=== PATIENT | female | born 1990 | race Caucasian/White ===

== ENCOUNTER 2019-07-09 13:18 | Emergency (ER) | payer OTHER, SELFPAY ==
[2019-07-09 13:46] VITALS: BP 129/76; PULSE 74; RESP 16; TEMP 37.3; O2SAT 99
--- NOTE | 2019-07-09 14:25 | ED.URI ---
HPI - URI/Sore Throat General Chief Complaint: Upper Respiratory Infection Stated Complaint: Cold/Flu like sx Time Seen by Provider: 07/09/19 14:22 Source: patient and RN notes reviewed Mode of arrival: ambulatory Limitations: no limitations History of Present Illness HPI Narrative: 28-year-old female presents with concern for a low-grade fever, nasal congestion, rhinorrhea, occasional cough, fatigue, body aches. Reports symptoms worsen last night. Reports symptoms started 1 week ago. Has not taken any medications for her symptoms. She is worried about coronavirus. MD elicited complaint: nasal congestion Related Data Allergies Allergy/AdvReac Type Severity Reaction Status Date / Time No Known Allergies Allergy Verified 07/09/19 13:54 Review of Systems Review of Systems: Narrative: CONSTITUTIONAL: Reports malaise, low-grade fever. EYES: Denies visual changes, redness, or discharge. ENT: Reports rhinorrhea, congestion. Denies sinus pain, otalgia and sore throat. CARDIOVASCULAR: Denies chest pain, palpitations, or edema. RESPIRATORY: Reports occasional cough. Denies dyspnea. GASTROINTESTINAL: Denies abdominal pain, nausea, vomiting, diarrhea SKIN: Denies rash or itching. MUSCULOSKELETAL: Reports myalgia. NEUROLOGIC: Denies headache. All systems reviewed & are unremarkable except as noted in HPI and below PMFSH Comments At time of signature, agree with nursing past medical, surgical, social and family history. There is no relevant family history pertinent to the presenting complaint Exam Narrative: Exam Narrative: GENERAL: Well-appearing, well-nourished, and in no acute distress. HEAD: Normocephalic EYES: PERRLA, conjunctivae clear ENT: Nares clear, turbinates erythematous, clear discharge. Mucous membranes moist. TM pearly [place] with dull light reflex bilaterally; no tragal tenderness. Oropharynx not erythematous without lesions. Tonsils not enlarged and without exudate, no drooling, no hoarseness, no trismus, uvula midline. NECK: Supple. No lymphadenopathy CHEST: Clear to auscultation, breath sounds equal. No wheezing, rhonchi, rales, or stridor. No respiratory distress, speaks in full sentences. HEART: Regular rate and rhythm. No murmur heard. SKIN: Warm, dry, no rash. NEURO: Alert and oriented x3. PSYCH: Normal mood and affect Course Course Emergency Course: Patient is aware of diagnosis, understands and agrees to treatment plan. Anticipatory guidance given. Patient agrees to follow-up as directed and is aware of reasons to seek care at the emergency department. Portions of this record may have been created with voice recognition software Vital Signs Vital signs: Vital Signs Temperature 99.1 F 07/09/19 13:46 Pulse Rate 74 07/09/19 13:46 Respiratory Rate 16 07/09/19 13:46 Blood Pressure 129/76 07/09/19 13:46 Pulse Oximetry 99 07/09/19 13:46 Temperature 99.1 F 07/09/19 13:46 Pulse Rate 74 07/09/19 13:46 Respiratory Rate 16 07/09/19 13:46 Blood Pressure 129/76 07/09/19 13:46 Pulse Oximetry 99 07/09/19 13:46 Reviewed. Patient has been instructed to follow up with her primary care provider within the next week regarding her elevated blood pressure today. MDM - URI/Sore Throat MDM Narrative Medical decision making narrative: Differential diagnosis considered: Strep pharyngitis, allergic rhinitis, upper respiratory tract infection, sinusitis, rhinosinusitis, nasopharyngitis. viral pharyngitis, otitis media, otitis externa, pneumonia, bronchitis, viral cough syndrome, viral syndrome, and influenza. Exam findings show no acute concerns or changes; patient is non-toxic appearing and is in no distress. Patient is appropriate for outpatient treatment and follow-up. Critical Care Time Critical Care Time Critical Care Time: No Discharge Plan Discharge Clinical Impression: Viral infection Patient Disposition: Home, Self-Care Condition: Stable Instructions: Viral Syndrome (ED)
== END 2019-07-09 14:40 | disposition home or self-care (01) ==
PROVIDERS: Emergency Provider Nurse Practitioner
DX: B34.9 Viral infection, unspecified (principal)
CPT/HCPCS: 99203; G0463

== ENCOUNTER 2019-12-09 23:13 | Emergency (ER) | payer OTHER, SELFPAY ==
[2019-12-09 23:26] VITALS: BP 146/73; PULSE 86; RESP 16; TEMP 37.1; O2SAT 100
[2019-12-09 23:42] LABS: Basophils Percent Auto 0.3 % (0.2-1.2); Eosinophils Absolute Auto 0.1 K/mm3 (0-0.3); Eosinophils Percent Auto 1.1 % (0-4.4); Hematocrit 42.2 % (37.0-47.0); Immature Granulocyte Absolute 0.02 K/mm3 (0.00-0.031); Immature Granulocyte Percent A 0.2 % (0-0.5); Lymphocytes Absolute Auto 2.44 K/mm3 (0.9-3.2); Lymphocytes Percent Auto 23.1 % (18.3-44.2); Mean Corpuscular HGB Conc 33.2 g/dl (32-36); Mean Corpuscular Hemoglobin 29.1 pg (26-34); Mean Corpuscular Volume 87.7 fl (80-100); Mean Platelet Volume 9.6 fl (7.4-10.4); Monocytes Absolute Auto 0.9 K/mm3 (0.1-0.6); Monocytes Percent Auto 8.4 % (2.6-8.5); Neutrophils Absolute Auto 7.1 K/mm3 (1.3-6.7); Neutrophils Percent Auto 66.9 % (45.5-73.1); Platelet Count Result 306 k/mm3 (150-375); Red Blood Count 4.81 M/mm3 (4.2-5.4); Red Cell Distribution Width 12.4 % (11.5-14.5); White Blood Count 10.6 K/mm3 (4.5-10.0)
--- NOTE | 2019-12-09 23:42 | ED.GENADULT ---
HPI - General Adult General Chief complaint: Nausea/Vomiting/Diarrhea Stated complaint: possible GI bleed Time Seen by Provider: 12/09/19 23:20 Source: RN notes reviewed History of Present Illness HPI narrative: Patient presents emergency department from home for possible blood in the stool. Patient states that this evening she had 2 episodes of diarrhea. She states after the second episode of diarrhea with wiping she noted bright red blood. She denies having any blood in the stool that she could see. She states she did have some abdominal cramping following this but denies any current abdominal pain and noted some mild chills following episode of diarrhea but denies any at this time. She denies any fevers chest pain shortness of breath or any other symptoms at this time. Denies being on any blood thinners Related Data Home Medications Medication Instructions Recorded Confirmed No Home Medications 12/09/19 12/09/19 Allergies Allergy/AdvReac Type Severity Reaction Status Date / Time No Known Allergies Allergy Verified 12/09/19 23:29 Review of Systems Review of Systems: Narrative: Gen.: Denies fevers reports chills ENT: Denies congestion Respiratory: Denies shortness of breath or cough CV: Denies chest pain or palpitations GI: See HPI denies burning, urgency, frequency or hematuria Musculoskeletal: Denies back pain or muscle pain Neuro: Denies numbness, tingling, weakness or focal weakness Skin: Denies rash Except as documented, all other systems reviewed and negative PMFSH Past Medical History Medical History (Updated 12/10/19 @ 00:48 by Ke Sue DO) Patient denies significant medical history Social History Social History (Updated 12/09/19 @ 23:43 by Ke Sue DO) Smoking status: Never smoker Gender identity (if verbalized by the patient): Female Exam Narrative: Exam Narrative: APPEARANCE: No acute distress, nontoxic, resting in bed EYES: EOMI HEENT: Normocephalic, atraumatic, OMM RESPIRATORY: No respiratory distress Clear to auscultation bilaterally with no rhonchi wheezing or rales. CARDIOVASCULAR: Regular rate and rhythm without murmurs rubs or gallops. ABDOMINAL: Soft, nontender, nondistended, no rebound or guarding Rectal: No hemorrhoids or fissures, no active bleeding, small amount of soft brown stool is Hemoccult negative MUSCULOSKELETAl: Moves all extremities. No clubbing, cyanosis or edema. NEURO: Awake and alert. Following commands, speech normal, no focal deficits SKIN:: Warm, dry. No rashes lesions or abrasions PSYCHIATRIC: Normal affect/mood, Course Course Emergency Course: Discussed with patient results of workup and diagnosis. Discussed need for follow-up with primary care, proper use of medication, and reasons to return to the emergency department. Patient understands and agrees to current treatment plan Vital Signs Vital signs: Vital Signs Temperature 98.8 F 12/09/19 23:26 Pulse Rate 86 12/09/19 23:26 Respiratory Rate 16 12/09/19 23:26 Blood Pressure 146/73 H 12/09/19 23:26 Pulse Oximetry 100 12/09/19 23:26 Temperature 98.8 F 12/09/19 23:26 Pulse Rate 86 12/09/19 23:26 Respiratory Rate 16 12/09/19 23:26 Blood Pressure 146/73 H 12/09/19 23:26 Pulse Oximetry 100 12/09/19 23:26 Medical Decision Making MDM Narrative Medical decision making narrative: Patient with 2 episodes diarrhea tonight abdomen is soft and nontender. Patient noted blood with wiping only no blood noted in the stool no hemorrhoids or fissures Hemoccult negative in ED. At this time feel patient stable for follow-up as outpatient with GI Vital Signs Vital Signs: Vital Signs Temperature 98.8 F 12/09/19 23:26 Pulse Rate 86 12/09/19 23:26 Respiratory Rate 16 12/09/19 23:26 Blood Pressure 146/73 H 12/09/19 23:26 Pulse Oximetry 100 12/09/19 23:26 Temperature 98.8 F 12/09/19 23:26 Pulse Rate 86 12/09/19 23:26 Respiratory Rate
[2019-12-09 23:46] LABS: Add Urine Microscopic? NO; Appearance Urine Clear (Clear); Bilirubin Urine Negative (Negative); Blood Urine Negative (Negative); Color Urine Colorless (Yellow); Glucose Urine UA Negative (Negative); Ketones Urine Negative (Negative); Leukocyte Esterase Ur Negative LEU/UL (Negative); Nitrate Urine Negative (Negative); Protein Urine Negative (Negative); Urobilinogen Urine Negative mg/dL (<2.0); WBC Urine 0-3 /hpf
[2019-12-09 23:49] LABS: Specific Grav Ur 1.003 (1.001-1.035)
[2019-12-09] MEDS: SODIUM CHLORIDE 0.9% IV 1,000 ML 999 ML IV CONT (23:51)
[2019-12-09 23:56] LABS: Glucose Point of Care 100 (65-105)
[2019-12-09 23:59] LABS: Alanine Aminotransferase 16 U/L (4-35); Albumin Level 4.7 g/dL (3.5-5.1); Alkaline Phosphatase 75 U/L (38-126); Anion Gap 10 mmol/L (8-16); Aspartate Amino Transferase 23 U/L (14-36); Bilirubin,Total 0.2 mg/dL (0.2-1.3); Blood Urea Nitrogen 12 mg/dL (7-17); Calcium 9.5 mg/dL (8.4-10.2); Carbon Dioxide 25 mmol/L (22-30); Chloride 105 mmol/L (98-107); Estimated Glomerular Filt Rate > 60; Glucose 102 mg/dL (65-105); Lipase 98 U/L (23-300); Potassium 3.8 mmol/L (3.4-5.0); Sodium 140 mmol/L (137-145)
[2019-12-10 00:12] LABS: Prothrombin Time 12.9 Seconds (11.1-14.7)
[2019-12-10 00:13] LABS: Partial Thromboplastin Time 33.2 SECONDS (22.3-36.8)
[2019-12-10 00:30] LABS: Alanine Aminotransferase 14 U/L (4-35); Albumin Level 4.1 g/dL (3.5-5.1); Alkaline Phosphatase 70 U/L (38-126); Anion Gap 7 mmol/L (8-16); Aspartate Amino Transferase 20 U/L (14-36); Bilirubin,Total < 0.1 mg/dL (0.2-1.3); Blood Urea Nitrogen 12 mg/dL (7-17); Carbon Dioxide 24 mmol/L (22-30); Chloride 108 mmol/L (98-107); Estimated Glomerular Filt Rate > 60; Glucose 102 mg/dL (65-105); Lipase 85 U/L (23-300); Sodium 139 mmol/L (137-145)
[2019-12-10 01:14] VITALS: BP 129/67; PULSE 67; RESP 16; O2SAT 99
== END 2019-12-10 01:16 | disposition home or self-care (01) ==
PROVIDERS: Emergency Provider Emergency Medicine; PCP Family Medicine
DX: K62.5 Hemorrhage of anus and rectum (principal); R19.7 Diarrhea, unspecified
CPT/HCPCS: 36415; 80053; 81003; 81025; 82948; 83690; 85025; 85610; 85730; 86850; 86900; 86901; 96360; 99283; J7030

== ENCOUNTER 2020-01-29 02:15 | Outpatient (CLI) | payer OTHER, SELFPAY ==
[2020-01-29 18:59] LABS: SARS-CoV-2 RNA PCR Negative
== END 2020-01-29 02:16 | disposition home or self-care (01) ==
LOC: ANHCOVIDDT 02:15
PROVIDERS: PCP Family Medicine; Visit Provider Internal Medicine Gastroenterology
DX: Z01.812 Encounter for preprocedural laboratory examination (principal); Z20.828 Contact with and (suspected) exposure to other viral communicable diseases
CPT/HCPCS: 87635; C9803; U0003

== ENCOUNTER 2020-02-01 01:36 | Day surgery (SDC) | payer OTHER, SELFPAY ==
[2020-01-25 13:05] VITALS: BMI 35.6
[2020-02-01 11:32] VITALS: BP 104/78; PULSE 79; RESP 16; TEMP 37.1; O2SAT 98; BMI 35.1
--- NOTE | 2020-02-01 11:40 | WPDANESEPPF ---
Anes - Initial Pre Proc Eval Procedure: Operation Date: 02/01/20 12:45 Proposed Procedures p Colonoscopy - Zaid Huerta MD Date/Time: 02/01/20 11:40 Surgeon: Zaid Huerta MD Pre Op Diagnosis: melena, diarrhea Patient Data Age: 29 Gender: F Height: 5 ft 6 in Weight: 98.6 kg Last Vital Signs Temp 98.8 F 02/01/20 11:32 Pulse 79 02/01/20 11:32 Resp 16 02/01/20 11:32 BP 104/78 02/01/20 11:32 Pulse Ox 98 02/01/20 11:32 Allergies Allergy/AdvReac Type Severity Reaction Status Date / Time Sawyer And Derivatives AdvReac Mild Ulcers Verified 02/01/20 11:30 Home Medications Medication Instructions Recorded Confirmed Type multivit with min-folic acid 0.4 mg PO DAILY 01/25/20 01/25/20 History [Adult One Daily Multivitamin] Patient hx anesthesia problems: none Family hx anesthesia problems: none PMFSH Past Medical History Medical History (Updated 02/01/20 @ 11:29 by Kofi Vasquez MD) Blood in stool Healthy adult Patient denies significant medical history Social History Social History (Updated 12/09/19 @ 23:43 by Ke Sue DO) Smoking status: Never smoker Alcohol intake: current Drinks per week: 2 Substance use type: does not use Living arrangements: with family Gender identity (if verbalized by the patient): Female Spiritual care concerns: No Anes - Eval Final PreProcedure Day of Procedure 02/01/20 11:40 Patient weight: obese Heart: regular rate and rhythm Lungs: clear to auscultation Airway: Mallampati scale class II Neurological: alert and oriented Last oral intake: >/= 8 hours ASA classification: II Emergent: no Anesthetic plan: proceed Anesthesia type and monitoring: general GIVS and standard monitoring Informed Consent: The patient's anesthetic plan and its attendant risks and benefits were discussed with the patient/family/POA. Questions were solicited and answers provided to the satisfaction of the patient/family/POA.
[2020-02-01] MEDS: LACTATED RINGERS 1,000 ML 150 ML IV CONT (11:48)
--- NOTE | 2020-02-01 12:29 | PM.HPGS ---
History of Present Illness History of Present Illness Consent: Risks, benefits, and alternatives have been discussed and questions answered. Patient agrees to proceed with procedure. Chief complaint: melena, diarrhea Narrative: Alysa Ching is a 29 year old female with self-limited rectal bleeding, never had colonoscopy Review of Systems Constitutional: Constitutional: Denies headache(s) and Denies weakness Eyes: Eyes: Denies blurry vision ENT: Reports Normal hearing present, Denies headache(s) and Denies neck pain Cardiovascular: Cardiovascular: Denies chest pain and Denies dyspnea Respiratory: Respiratory: Denies dyspnea Gastrointestinal: Gastrointestinal: Reports no additional gastrointestinal complaints Genitourinary: Genitourinary: Denies dysuria Musculoskeletal: Musculoskeletal: Denies neck pain Integumentary/Breasts: Skin/Breast: Denies dry skin Neurologic: Reports Normal hearing present, Denies headache(s) and Denies weakness Psychiatric: Psychiatric: Denies anxiety Endocrine: Endocrine: Denies change in body appearance Hematologic/Lymphatic: Hematologic/Lymphatic: Denies easy bleeding Allergic/Immunologic: Allergic/Immunologic: Denies urticaria PMFSH Past Medical History Medical History (Updated 02/01/20 @ 11:29 by Kofi Vasquez MD) Blood in stool Healthy adult Patient denies significant medical history Social History Social History (Updated 12/09/19 @ 23:43 by Ke Sue DO) Smoking status: Never smoker Alcohol intake: current Drinks per week: 2 Substance use type: does not use Living arrangements: with family Gender identity (if verbalized by the patient): Female Spiritual care concerns: No Meds Home Medications and Allergies Home Medications Medication Instructions Recorded Confirmed Type multivit with min-folic acid 0.4 mg PO DAILY 01/25/20 01/25/20 History [Adult One Daily Multivitamin] Allergies Allergy/AdvReac Type Severity Reaction Status Date / Time Denning And Derivatives AdvReac Mild Ulcers Verified 02/01/20 11:30 Vital Signs Vital Signs - 24 hr 02/01/20 11:32 Temperature 98.8 F Pulse Rate 79 Respiratory Rate 16 Blood Pressure 104/78 Pulse Oximetry 98 Exam Const: General: comfortable and no acute distress HENMT: General nose exam: Normal nares present Eyes: General: appearance normal, both eyes and all related structures Neck: Neck: no JVD Resp: Auscultation: clear to auscultation bilaterally Cardio: Rate: regular rate Rhythm: regular rhythm GI: Inspection: non-distended GI Palp: Yes Soft to palpation Skin: General skin exam: normal color Neuro: General: gait normal Speech: normal speech Extrem: General: normal to inspection Psych: Mental Status: mental status grossly normal Assessment and Plan Assessment and plan (1) Blood in stool: Code(s): K92.1 - Melena Status: Acute Assessment and Plan: will proceed with colonoscopy
[2020-02-01 12:49] VITALS: BP 94/59; PULSE 59; RESP 21; O2SAT 97
[2020-02-01 12:59] VITALS: BP 99/67; PULSE 70; RESP 17; O2SAT 98
[2020-02-01 13:06] VITALS: BP 102/67; PULSE 54; RESP 16; O2SAT 98
== END 2020-02-01 13:23 | disposition home or self-care (01) ==
PROVIDERS: PCP Family Medicine; Visit Provider Internal Medicine Gastroenterology
PROC: 0DJD8ZZ Inspection of Lower Intestinal Tract, Via Natural or Artificial Opening Endoscopic (ICD-10-PCS; CPT 45378; principal; 2020-02-01 12:45)
DX: K92.1 Melena (principal); K64.8 Other hemorrhoids; E66.9 Obesity, unspecified; Z68.35 Body mass index [BMI] 35.0-35.9, adult
CPT/HCPCS: 45378; J2704; J7120

== ENCOUNTER 2020-03-17 06:53 | Outpatient (NON) | payer OTHER, SELFPAY ==
[2020-03-18 13:43] LABS: SARS-CoV-2 RNA PCR Negative
== END 2020-03-17 06:54 ==
PROVIDERS: PCP Family Medicine; Visit Provider Family Medicine
DX: R68.89 Other general symptoms and signs (principal); Z20.828 Contact with and (suspected) exposure to other viral communicable diseases
CPT/HCPCS: 87635; C9803; U0003

== ENCOUNTER 2020-04-28 15:34 | Emergency (ER) | payer OTHER, SELFPAY ==
--- NOTE | ~2020-04-28 | CT_ITS ---
EXAMINATION: CT brain wo con EXAM DATE: 04/28/2020 17:41 INDICATION: Headache right occipital region. TECHNIQUE: Spiral CT of the head was performed without contrast. Axial, coronal and sagittal images were reviewed. The dose-length product (DLP) for this examination was 605.33 mGy-cm. The exposure w as tailored according to patient size, and iterative reconstruction (ASIR) was used as additional dos e reduction technique. There is no prior study for comparison. FINDINGS: There is no acute intraparenchymal hemorrhage. No evidence of intraparenchymal brain mass lesion. No evidence of acute infarction. There is no mass effect or midline shift. The ventricles are normal in size. There are no extra-axial collections. There are no acute calvarial fractures. T he orbits are unremarkable. Soft tissue is unremarkable. The visualized sinuses and mastoid air inder ls are well aerated. IMPRESSION: 1. No acute intracranial findings. Reviewed, dictated and finalized at location A. AND GAS LEASE PUMPER
--- NOTE | ~2020-04-28 | XR_ITS ---
EXAMINATION: XR chest 2V EXAM DATE: 04/28/2020 19:29 INDICATION: Cough, right-sided neck and chest pain, headache. TECHNIQUE: Frontal and lateral projections of the chest obtained and reviewed. There is no prior robinson dy for comparison. FINDINGS: The lungs are clear. There are no pleural effusions. The cardiomediastinal silhouette is within normal limits. There is no pneumothorax suspected. The bones and soft tissues are unremarkab le. IMPRESSION: No acute cardiopulmonary findings. Reviewed, dictated and finalized at location A. TER PLANT OPERATOR
[2020-04-28 16:18] VITALS: BP 130/90; PULSE 96; RESP 16; TEMP 36.8; O2SAT 99
--- NOTE | 2020-04-28 16:18 | ECG_ITS ---
Measurements Intervals [place] Rate: 70 P: 46 [place]: 139 QRS: 44 QRSD: 102 T: 48 QT: 392 QTc: 424 Interpretive Statements SINUS RHYTHM INCOMPLETE RIGHT BUNDLE BRANCH BLOCK BORDERLINE ECG Electronically Signed On 04-28-2020 16:20:27 CLOTH BOIL OFF MACHINE OPERATOR by Woody Wood D.O.
[2020-04-28 16:52] VITALS: BP 125/73; PULSE 66; RESP 14; O2SAT 100
--- NOTE | 2020-04-28 16:57 | ED.ARRPALP ---
HPI - Arrhythmia/Palpitations General Chief Complaint: Arrhythmia/Palpitations Stated Complaint: heart racing Time Seen by Provider: 04/28/20 16:47 Source: patient Mode of arrival: ambulatory Limitations: no limitations History of Present Illness HPI narrative: Patient is a 29-year-old female complaining of palpitations, intermittent accompanied by occipital headache that started approximately 3 days ago. Patient states that her headache is mild, occipital, nonradiating, described as dull pain. Patient denies any speech or visual disturbance, weakness, numbness, neck stiffness or pain, chest pain, shortness of breath, dull pain, nausea, vomiting, fever or chills. Related Data Home Medications Medication Instructions Recorded Confirmed multivit with min-folic acid 0.4 mg PO DAILY 01/25/20 01/25/20 [Adult One Daily Multivitamin] Allergies Allergy/AdvReac Type Severity Reaction Status Date / Time Rock And Derivatives AdvReac Mild Ulcers Verified 04/28/20 16:23 Review of Systems Review of Systems: All systems reviewed & are unremarkable except as noted in HPI and below Constitutional: Constitutional: Denies body ache(s), Denies chills, Denies excessive sweating, Denies fatigue, Denies fever(s), Denies headache(s), Denies lethargy, Denies malaise, Denies weakness and Denies weight loss Eyes: Eyes: Denies blurry vision, Denies change in vision and Denies loss of vision ENT: Denies dizziness, Denies ear discharge, Denies headache(s), Denies lip swelling, Denies epistaxis, Denies nasal congestion, Denies neck pain, Denies throat swelling and Denies tongue swelling Cardiovascular: Cardiovascular: Denies chest pain, Denies chest pain at rest, Denies chest pain with activity, Denies diaphoresis, Denies rapid heart rate, Denies edema, Denies irregular heart rhythm, Denies lightheadedness, Denies palpitations, Denies dyspnea and Denies dyspnea on exertion Respiratory: Respiratory: Denies chest congestion, Denies cough, Denies hemoptysis, Denies dyspnea and Denies dyspnea on exertion Gastrointestinal: Gastrointestinal: Denies abdominal pain, Denies melena, Denies hematochezia, Denies diarrhea, Denies nausea, Denies vomiting and Denies hematemesis Musculoskeletal: Musculoskeletal: Denies abnormal gait, Denies deformity, Denies joint swelling, Denies limited range of motion, Denies neck pain and Denies numbness Neurologic: Denies Abnormal speech present, Denies abnormal gait, Denies confusion, Denies dizziness, Denies focal weakness, Denies loss of vision, Denies numbness, Denies Other visual disturbances, Denies Sensory deficit (Neuro) and Denies weakness Psychiatric: Psychiatric: Denies confusion, Denies depression, Denies auditory hallucinations, Denies homicidal ideation and Denies suicidal ideation Endocrine: Endocrine: Denies cold intolerance, Denies excessive sweating, Denies fatigue, Denies heat intolerance and Denies palpitations Hematologic/Lymphatic: Hematologic/Lymphatic: Denies easy bleeding and Denies easy bruising Allergic/Immunologic: Allergic/Immunologic: Denies lip swelling, Denies throat swelling and Denies tongue swelling PMFSH Past Medical History Medical History Blood in stool Healthy adult Patient denies significant medical history Social History Social History Smoking status: Never smoker Alcohol intake: current Drinks per week: 2 Substance use type: does not use Gender identity (if verbalized by the patient): Female Spiritual care concerns: No Exam Const: General: cooperative, healthy appearing, comfortable, no acute distress, well developed, alert and awake; No confusion Orientation/consciousness: oriented to person, oriented to place, oriented to time, patient oriented x3 and No confusion Limitations: no limitations HENMT: Head: normal to inspection, normocephalic and atrau
[2020-04-28 17:16] LABS: Basophils Percent Auto 0.2 % (0.2-1.2); Eosinophils Percent Auto 0.5 % (0-4.4); Hematocrit 41.4 % (37.0-47.0); Immature Granulocyte Absolute 0.02 K/mm3 (0.00-0.031); Immature Granulocyte Percent A 0.2 % (0-0.5); Lymphocytes Absolute Auto 1.45 K/mm3 (0.9-3.2); Lymphocytes Percent Auto 17.6 % (18.3-44.2); Mean Corpuscular HGB Conc 33.8 g/dl (32-36); Mean Corpuscular Hemoglobin 29.9 pg (26-34); Mean Corpuscular Volume 88.5 fl (80-100); Monocytes Absolute Auto 0.7 K/mm3 (0.1-0.6); Neutrophils Percent Auto 73.5 % (45.5-73.1); Platelet Count Result 265 k/mm3 (150-375); Red Blood Count 4.68 M/mm3 (4.2-5.4); Red Cell Distribution Width 12.5 % (11.5-14.5); White Blood Count 8.2 K/mm3 (4.5-10.0)
[2020-04-28 17:26] LABS: INR 0.9; Prothrombin Time 13.2 Seconds (11.1-14.7)
[2020-04-28 17:27] LABS: Partial Thromboplastin Time 30.6 SECONDS (22.3-36.8)
[2020-04-28 17:29] LABS: D Dimer 0.32 ug/mL (<0.48)
[2020-04-28 17:30] LABS: Anion Gap 5 mmol/L (8-16); Blood Urea Nitrogen 9 mg/dL (7-17); Calcium 8.9 mg/dL (8.4-10.2); Carbon Dioxide 29 mmol/L (22-30); Chloride 104 mmol/L (98-107); Estimated CRCL calculation 137 ml/min; Estimated Glomerular Filt Rate > 60; Glucose 86 mg/dL (65-105); Potassium 3.7 mmol/L (3.4-5.0); Sodium 138 mmol/L (137-145)
[2020-04-28] MEDS: SODIUM CHLORIDE 0.9% IV 1,000 ML 999 ML IV CONT (18:07)
[2020-04-28] MEDS: HYDROcodone/acetaminophen (*CRX) 5-325 MG TABLET 1 TAB PO (19:33)
[2020-04-28 19:36] VITALS: BP 116/82; PULSE 70; RESP 20; O2SAT 100
[2020-04-28 20:20] VITALS: BP 101/59; PULSE 61; RESP 12; O2SAT 99
== END 2020-04-28 20:20 | disposition home or self-care (01) ==
PROVIDERS: Emergency Provider Emergency Medicine; PCP Family Medicine
DX: R00.2 Palpitations (principal); R51.9 Headache, unspecified; I45.10 Unspecified right bundle-branch block
CPT/HCPCS: 36415; 70450; 71046; 80048; 84443; 85025; 85380; 85610; 85730; 93005; 99284; A9270; J7030

== ENCOUNTER 2021-01-24 09:03 | Outpatient (RCR) | payer OTHER, SELFPAY ==
[2021-01-24] MEDS: RHO(D) IMMUNE GLOBULIN 300 MCG/2 ML SYRINGE IM (08:50)
== END 2021-01-24 10:00 | disposition home or self-care (01) ==
LOC: ANHLAB 09:03
PROVIDERS: PCP Family Medicine; Visit Provider Obstetrics & Gynecology
DX: Z29.13 Encounter for prophylactic Rho(D) immune globulin (principal); O36.0130 Maternal care for anti-D [Rh] antibodies, third trimester, not applicable or unspecified; Z3A.00 Weeks of gestation of pregnancy not specified
CPT/HCPCS: 36415; 85461; 90384; 96372; J2790

== ENCOUNTER 2021-06-15 15:13 | Outpatient (RCR) | payer OTHER, SELFPAY ==
[2021-06-15 17:00] LABS: Hematocrit 34.6 % (37.0-47.0); Hemoglobin 11.5 g/dL (12.0-15.0)
[2021-06-15 17:09] LABS: Glucose 1 Hour PP 50gm Dose 164 mg/dL
[2021-06-15 17:51] LABS: HIV 1/2 Ab P24 Ag Result Negative (Negative)
[2021-06-16] MEDS: RHO(D) IMMUNE GLOBULIN 300 MCG/2 ML SYRINGE IM (11:08)
[2021-06-18 08:04] LABS: Rapid Plasma Reagin Non-Reactive (NonReactive)
== END 2021-09-13 23:59 | disposition home or self-care (01) ==
LOC: ANHLAB 15:13
PROVIDERS: PCP Family Medicine; Visit Provider Obstetrics & Gynecology
DX: Z11.4 Encounter for screening for human immunodeficiency virus [HIV] (principal); Z29.13 Encounter for prophylactic Rho(D) immune globulin; O36.0130 Maternal care for anti-D [Rh] antibodies, third trimester, not applicable or unspecified; Z3A.00 Weeks of gestation of pregnancy not specified
CPT/HCPCS: 36415; 82947; 85014; 85018; 85461; 86592; 86703; 90384; 96372; G0432; J2790

== ENCOUNTER 2021-08-17 15:00 | Outpatient (RCR) | payer OTHER, SELFPAY ==
[2021-07-14 09:10] VITALS: BP 123/71; PULSE 88
[2021-08-03 16:32] VITALS: BP 113/74; PULSE 64
[2021-08-17 16:14] VITALS: BP 119/72; PULSE 79
== END 2021-08-29 02:45 | disposition home or self-care (01) ==
LOC: ANHOBOP 15:00
PROVIDERS: PCP Family Medicine; Visit Provider Obstetrics & Gynecology
DX: O36.8130 Decreased fetal movements, third trimester, not applicable or unspecified (principal); Z3A.33 33 weeks gestation of pregnancy; Z3A.36 36 weeks gestation of pregnancy; O24.419 Gestational diabetes mellitus in pregnancy, unspecified control; Z3A.37 37 weeks gestation of pregnancy; Z3A.38 38 weeks gestation of pregnancy
CPT/HCPCS: 59025

== ENCOUNTER 2021-08-21 19:07 | Observation (INO) | payer OTHER, SELFPAY ==
--- NOTE | 2021-08-21 22:00 | OBADM ---
This patient, Alysa Ching, admitted to the OB room Labor/Delivery/Recovery 109 for observation. Patient/family oriented to hospital policies and general routines including ID bracelet, bed and alarms, visiting hours, pain management, procedures, bathroom and other care routines, personal items, smoking policy, room service/diet, and visiting hours. Patient/Family are encouraged to report perceived risks to care and to ask questions if they do not understand what they are told or what they should do.
--- NOTE | 2021-08-24 16:33 | PM.OBTRLD ---
OB - Triage/Final Diagnosis Visit Information Comments/Additional reasons for admission: I have assessed the risk for this patient, Alysa Villagomez Humza, and determined that she would benefit from observation care. Final Diagnosis (1) Pelvic pain affecting : Code(s): O26.899 - Other specified related conditions, unspecified trimester; R10.2 - Pelvic and perineal pain Status: Acute
== END 2021-08-21 22:05 | disposition home or self-care (01) ==
PROVIDERS: Admitting Provider Obstetrics & Gynecology; PCP Family Medicine; Visit Provider Obstetrics & Gynecology
DX: O26.899 Other specified pregnancy related conditions, unspecified trimester (principal); R10.2 Pelvic and perineal pain; Z3A.00 Weeks of gestation of pregnancy not specified
CPT/HCPCS: G0378; G0379

== ENCOUNTER 2021-08-24 06:00 | Inpatient (IN) | payer OTHER, SELFPAY ==
[2021-08-24] VITALS (189 sets, daily range): BP systolic 81–143; BP diastolic 20–109; PULSE 57–177; RESP 12–18; TEMP 36.1–36.7; O2SAT 95–100; BMI 43.7
--- NOTE | 2021-08-24 06:00 | LDADM ---
This patient, Alysa Ching, was admitted to Labor/Delivery/Recovery 108 on 08/24/21 at 06:00. Plans for labor, pain management and were discussed with patient. Patient/family oriented to hospital policies and general routines including ID bracelet, bed and alarms, visiting hours, pain management, procedures, bathroom and other care routines, personal items, smoking policy, room service/diet and guest tray routines, infant security routines, and visiting hours. Patient/Family are encouraged to report perceived risks to care and to ask questions if they do not understand what they are told or what they should do. See OBIX for further documentation.
--- OUTSIDE RECORDS SUMMARY | 2021-08-24 06:15 | XMS_ITS | Encounter Summary ---
:1990 Author Care Team Providers Name Role Phone Capo K Bridgettjohn Primary Care Provider [phone] Reason for Visit None recorded. Assessment and Plan 1. Gestational diabetes mellitus , class A>1< ? non-stress test Discussion Note: None recorded.Patient educational handouts: No information available. Plan of Care Reminders Provider Appointments 3Hr on or around [facility] Glucose 10/10/2021 MD [facility] None ? ? recorded. Referral None ? ? recorded. Procedures None ? ? recorded. Surgeries None ? ? recorded. Imaging Non-stress 08/21/2021 [place] Test Medications Name Start Date ? ? escitalopram 10 mg tablet ? TAKE 1 TABLET BY MOUTH EVERY DAY ? Medications Administered None recorded. Vitals None recorded. Results Lab Results None recorded. Allergies Code Code System Name Reaction Severity Onset NKDA ? ? ? Problems Name Status Onset Date Source ? Active 02/19/2021 ? Gestational Diabetes Mellitus, Class a>1< Active 2021 ? Breech Presentation Active 07/13/2021 ? Poikilocytosis Activ
--- OUTSIDE RECORDS SUMMARY | 2021-08-24 06:15 | XMS_ITS | Encounter Summary ---
:1990 Author Care Team Providers Name Role Phone Capo Herr Primary Care Provider [phone] Reason for Visit None recorded. Assessment and [...] Surgeries None ? ? recorded. Imaging Non-stress 08/10/2021 [place] Test Medications Name Start Date ? ? escitalopram 10 mg tablet ? TAKE 1 TABLET BY MOUTH EVERY DAY ? Medications Administered None recorded. Vitals Weight Blood Pressure 277 lbs 112/74 mm[Hg] Results Lab Results None recorded. Allergies Code Code System Name Reaction Severity Onset NKDA ? ? ? Problems Name Status Onset Date Source ? Active 02/19/2021 ? Gestational Diabetes Mellitus, Class a>1< Active
--- OUTSIDE RECORDS SUMMARY | 2021-08-24 06:15 | XMS_ITS | Encounter Summary ---
:1990 Author Care Team Providers Name Role Phone Capo K Bridgettjohn Primary Care Provider [phone] Reason for Visit OB visit Assessment and Plan 1. Gestational diabetes mellitus , class A>1< 2. Poikilocytosis Discussion Note: None recorded.Patient educational handouts: No information available. Plan of Care Reminders Provider Appointments 3Hr on or around [facility] Glucose 10/10/2021 [facility] None ? ? recorded. Referral None ? ? recorded. Procedures None ? ? recorded. Surgeries None ? ? recorded. Imaging None ? ? recorded. Medications Name Start Date ? ? escitalopram 10 mg tablet ? TAKE 1 TABLET BY MOUTH EVERY DAY ? Medications Administered None recorded. Vitals Height Weight BMI Blood Pressure 5 ft 6 in 276 lbs 44.5 kg/m2 136/85 mm[Hg] Results Lab Results None recorded. Allergies Code Code System Name Reaction Severity Onset NKDA ? ? ? Problems Name Status Onset Date Source ? Active 02/19/2021 ? Gestational Diabetes Mellitus, Class a>1< Active
--- OUTSIDE RECORDS SUMMARY | 2021-08-24 06:15 | XMS_ITS ---
:1990 Author Care Team Providers Name Role Phone THELMA K TROYAARON Primary Care Provider [phone] Allergies Code Code System Name Reaction Severity Status Onset NKDA ? Medications Name Status Start Date Stop Date ? ? cetirizine 10 mg tablet Completed ? 01/23/20 TAKE 1 TABLET BY MOUTH EVERY DAY COVID-19 test specimen collection Completed ? 01/22/2021 TEST DIRECTED ergocalciferol (vitamin D2) 1,250 mcg Completed ? 03/19/2021 (50,000 unit) capsule escitalopram 10 mg tablet Active ? Not av ailable fluconazole 150 mg tablet Completed ? 2020 metronidazole 0.75 % vaginal gel Completed ? 03/05/2021 Nexplanon 68 mg subdermal implant Completed ? 01/22/2021 Inject by subcutaneous route. nitrofurantoin Completed ? 03/05/2021 monohydrate/macrocrystals 100 mg capsule nystatin-triamcinolone 100,000 Completed ? 05/19/2020 unit/gram-0.1 % topical ointment Active ? Not available terconazole 0.8 % vaginal cream Completed ? 03/05/2021 Problems Name Status Onset Date Source ? Active 02/19/2021 ? Gestational Diabetes Mellitus, Class a>1< Active 2021 ? Breech Presentation Active 07/13/2021 ? 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 Obesity Active ? ? Anxiety Active ? ? Dilatation of Renal Pelvis Active ? ? Rh
--- OUTSIDE RECORDS SUMMARY | 2021-08-24 06:15 | XMS_ITS | Encounter Summary ---
:1990 Author Care Team Providers Name Role Phone Capo Adam Herr Primary Care Provider [phone] Reason for Visit OB visit Assessment and Plan 1. Routine care Discussion Note: None recorded.Patient educational handouts: No [...] BMI Blood Pressure 5 ft 6 in 275 lbs 44.4 kg/m2 129/83 mm[Hg] Results Lab Results None recorded. Allergies Code Code System Name Reaction Severity Onset NKDA ? ? ? Problems Name Status Onset Date Source ? Active 02/19/2021 ? Gestational Diabetes Mellitus, Class a>1< Active 2021 ? Breech Presentation Active 07/13/2021
--- OUTSIDE RECORDS SUMMARY | 2021-08-24 06:16 | XMS_ITS | Encounter Summary ---
:1990 Author Care Team Providers Name Role Phone Capo Herr Primary Care Provider [phone] Reason for Visit None recorded. Assessment and Plan 1. Gestational diabetes mellitus , class A>1< Informed pt of results, explai marge in depth what the high levels mean, how her body is not processing the sugars correctly and this does rule her in for GDM. Pt states she has no history of DM, but her is a type 1 diabetic an d has a continuous monitor. Spoke with patient about diet changes an d how to adjust meals to decrease carbs and increase protein and healthy fats. Advised to continue low sugar, low carb diet, and higher proteins. Reviewed differe nt meal adjustments and ways to decrease carbs with still getting all of the nutrients she needs. Advised to follow 3 meals a day with snacks in between meals with importance on the bedtime snack. Revie wed nutritional label with patient and h ow to count carbs for each meal. Advised to be conscientious of meals and record foods that increase her levels and to avoid those types of foods. Reviewed acceptable drinks for patient and what to avoid. Reviewed pt drinks and to stick with zayra er, with an occasional glass of milk or tea as this is one of the patients likes. Pt states that her normal breakfast is tortilla with eggs, or kazakh yogurt with fruit. Advised to be conscientious of fr uits and tortillas, these hold a lot of carbs and sugars. Advised to really count carbs and stay within her limits. Look into low carb options for breads and tort illas, stick with proteins, veggies, and cheeses. Pt states she had a ton of rice with a meal and her level was perfectly fine, advised kind of all plays into what type, how healthy, and what shes eaten previously, to really start to portion control these meals. Pt agreeable that it would give her ultimately peace of mind to follow her carbs for these next 8 weeks. Advised to avoid frozen foods and pa luis miguel, cook fresh meals and refer to ADA for meal recommendations and more information on her diagnosis. Advised to continue checking blood sugar s f
--- OUTSIDE RECORDS SUMMARY | 2021-08-24 06:16 | XMS_ITS | Encounter Summary ---
:1990 Author Care Team Providers Name Role Phone Capo Adam Herr Primary Care Provider [phone] Reason for Visit OB visit Assessment and Plan Assessment Note Patient is ___weeks . Discu ssed plan. 1. Thrombocytopenic disorder ? CBC w/ auto diff 2. Routine care Discussion Note: None recorded.Patient educational handouts: No information available. Plan of Care Reminders Provider Appointments 3Hr on or around Vidhya The rese Glucose 10/10/2021 [facility] CBC W/ 07/31/2021 [facility] Auto Diff [facility] (Lab) Referral None ? ? recorded. Procedures None ? ? recorded. Surgeries None ? ? recorded. Imaging None ? ? recorded. Medications Name Start Date ? ? escitalopram 10 mg tablet ? TAKE 1 TABLET BY MOUTH EVERY DAY ? Medications Administered None recorded. Vitals Height Weight BMI Blood Pressure 5 ft 6 in 273 lbs 44.1 kg/m2 136/83 mm[Hg] Results Lab Results Date Name Specimen Result Interpretation Description Value Range Status Address ? 07/31/2021 CBC W/ High Wbc 11.1 3.6-10.2 Final [facility]: Auto
--- OUTSIDE RECORDS SUMMARY | 2021-08-24 06:16 | XMS_ITS | Encounter Summary ---
:1990 Author Care Team Providers Name Role Phone Capo Herr Primary Care Provider [phone] Reason for Visit None recorded. Assessment and Plan 1. Breech presentation ? section (SURG) 2. Gestational diabetes mellitus , class A>1< Discussion Note: None recorded.Patient educational handouts: No information available. Plan of Care Reminders Provider Appointments 3Hr Glucose on or around A my Ethel 10/10/2021 [facility] None ? ? recorded. Referral None ? ? recorded. Procedures None ? ? recorded. Surgeries 08/22/2021 [place] [facility] (SURG) [facility] None ? ? recorded. Medications Name Start Date ? ? escitalopram 10 mg tablet ? TAKE 1 TABLET BY MOUTH EVERY DAY ? Medications Administered None recorded. Vitals Height BMI 5 ft 6 in 27.9 kg/m2 Results Lab Results None recorded. Allergies Code Code System Name Reaction Severity Onset NKDA ? ? ? Problems Name Status Onset Date Source ?
--- OUTSIDE RECORDS SUMMARY | 2021-08-24 06:16 | XMS_ITS | Encounter Summary ---
:1990 Author Care Team Providers Name Role Phone Capo K Bridgettjohn Primary Care Provider [phone] Reason for Visit None recorded. Assessment and [...] Surgeries None ? ? recorded. Imaging Non-stress 07/17/2021 [facility] [facility] Medications Name Start Date [...] ? Breech Presentation Active 07/13/2021 ? Poikilocytosis Act
--- OUTSIDE RECORDS SUMMARY | 2021-08-24 06:16 | XMS_ITS | Encounter Summary ---
:1990 Author Care Team Providers Name Role Phone Capo Herr Primary Care Provider [phone] Reason for Visit OB visit Assessment and Plan Assessment Note Patient is ___weeks . Discu ssed plan. 1. Thrombocytopenic disorder ? platelet count, blood 2. Routine care Discussion Note: None recorded.Patient educational handouts: No information available. Plan of Care Reminders Provider Appointments 3Hr Glucose on or around A my Ethel 10/10/2021 [facility] Platelet 07/27/2021 [facility] (Lab) Referral None ? ? recorded. Procedures None ? ? recorded. Surgeries None ? ? recorded. Imaging None ? ? recorded. Medications Name Start Date ? ? escitalopram 10 mg tablet ? TAKE 1 TABLET BY MOUTH EVERY DAY ? Medications Administered None recorded. Vitals Height Weight BMI Blood Pressure 5 ft 6 in 274 lbs 44.2 kg/m2 117/73 mm[Hg] Results Lab Results None recorded. Allergies Code Code System Name Reaction Severity Onset NKDA ?
--- OUTSIDE RECORDS SUMMARY | 2021-08-24 06:16 | XMS_ITS | Encounter Summary ---
:1990 Author Care Team Providers Name Role Phone Capo K Carmenza Primary Care Provider [phone] Reason for Visit None recorded. Assessment and Plan 1. Gestational diabetes mellitus , class A>1< ? US, obstetric, follow-up Discussion Note: None recorded.Patient educational handouts: No information available. Plan of Care Reminders Provider Appointments 3Hr on or around Vidhya The rese Glucose 10/10/2021 [facility] None ? ? recorded. Referral None ? ? recorded. Procedures None ? ? recorded. Surgeries None ? ? recorded. Imaging US, 07/10/2021 [place] [facility], Follow-up Medications Name Start Date ? ? escitalopram [...]
--- OUTSIDE RECORDS SUMMARY | 2021-08-24 06:16 | XMS_ITS | Encounter Summary ---
:1990 Author Care Team Providers Name Role Phone Capo K Bridgettjohn Primary Care Provider [phone] Reason for Visit None recorded. Assessment and [...] Surgeries None ? ? recorded. Imaging Non-stress 08/07/2021 [facility] Medications Name Start Date [...]
--- OUTSIDE RECORDS SUMMARY | 2021-08-24 06:16 | XMS_ITS | Encounter Summary ---
:1990 Author Care Team Providers Name Role Phone Capo Herr Primary Care Provider [phone] Reason for Visit None recorded. Assessment and [...] Surgeries None ? ? recorded. Imaging Non-stress 07/24/2021 [facility] Medications Name Start Date ? ? escitalopram 10 mg tablet ? TAKE 1 TABLET BY MOUTH EVERY DAY ? Medications Administered None recorded. Vitals Weight Blood Pressure 273 lbs 110/76 mm[Hg] Results Lab Results None recorded. Allergies Code Code System Name Reaction Severity Onset NKDA ? ? ? Problems Name Status Onset Date Source ? Active 02/19/2021 ? Gestational Diabetes Mellitus, Class a>1< Active
--- OUTSIDE RECORDS SUMMARY | 2021-08-24 06:16 | XMS_ITS | Encounter Summary ---
:1990 Author Care Team Providers Name Role Phone Capo K Dougiemili Primary Care Provider [phone] Reason for Visit None recorded. Assessment and [...] Surgeries None ? ? recorded. Imaging Non-stress 07/31/2021 [facility] Medications Name Start Date [...]
--- OUTSIDE RECORDS SUMMARY | 2021-08-24 06:16 | XMS_ITS | Encounter Summary ---
:1990 Author Care Team Providers Name Role Phone Capo K Bridgettjohn Primary Care Provider [phone] Reason for Visit OB visit Assessment and Plan 1. Gestational diabetes mellitus , class A>1< 2. Breech presentation Discussion Note: None recorded.Patient educational handouts: No [...] BMI Blood Pressure 5 ft 6 in 272 lbs 43.9 kg/m2 124/81 mm[Hg] Results Lab Results None recorded. Allergies Code Code System Name Reaction Severity Onset NKDA ? ? ? Problems Name Status Onset Date Source ? Active 02/19/2021 ? Gestational Diabetes Mellitus, Class a>1< Active
--- OUTSIDE RECORDS SUMMARY | 2021-08-24 06:16 | XMS_ITS | Encounter Summary ---
:1990 Author Care Team Providers Name Role Phone Capo K Carmenza Primary Care Provider [phone] Reason for Visit None recorded. Assessment and Plan 1. Maternal obesity complicating , childbirth and the puerperium, antepartum ? non-stress test Discussion Note: None recorded.Patient educational handouts: No information available. Plan of Care Reminders Provider Appointments 3Hr on or around Vidhya The rese Glucose 10/10/2021 [facility] None ? ? recorded. Referral None ? ? recorded. Procedures None ? ? recorded. Surgeries None ? ? recorded. Imaging Non-stress 07/27/2021 [facility] Medications Name Start Date [...]
--- OUTSIDE RECORDS SUMMARY | 2021-08-24 06:16 | XMS_ITS | Encounter Summary ---
:1990 Author Care Team Providers Name Role Phone Capo Herr Primary Care Provider [phone] Reason for Visit None recorded. Assessment and Plan 1. Gestational diabetes mellitus , class A>2< ? US, obstetric, follow-up ? US, obstetric, biophysical profile + non-stress test Discussion Note: None recorded.Patient educational handouts: No information available. Plan of Care Reminders Provider Appointments 3Hr Glucose on or around A my Ethel 10/10/2021 [facility] None ? ? recorded. Referral None ? ? recorded. Procedures None ? ? recorded. Surgeries None ? ? recorded. Imaging US, 08/07/2021 [place] [facility], Follow-up ? US, 08/07/2021 [place] [facility], Biophysical Profile + Non-stress Test Medications Name Start Date ? ? escitalopram 10 mg tablet ? TAKE 1 TABLET BY MOUTH EVERY DAY ? Medications Administered None recorded. Vitals None recorded. Results Lab Results None recorded. Allergies Code Code System Name Reaction Severity Onset NKDA ?
--- OUTSIDE RECORDS SUMMARY | 2021-08-24 06:16 | XMS_ITS | Encounter Summary ---
:1990 Author Care Team Providers Name Role Phone Capo Herr Primary Care Provider [phone] Reason for Visit None recorded. Assessment and [...] Surgeries None ? ? recorded. Imaging Non-stress 07/13/2021 [facility] Medications Name Start Date ? ? escitalopram 10 mg tablet ? TAKE 1 TABLET BY MOUTH EVERY DAY ? Medications Administered None recorded. Vitals Weight Blood Pressure 272 lbs 128/83 mm[Hg] Results Lab Results None recorded. Allergies Code Code System Name Reaction Severity Onset NKDA ? ? ? Problems Name Status Onset Date Source ? Active 02/19/2021 ? Gestational Diabetes Mellitus, Class a>1< Active
--- OUTSIDE RECORDS SUMMARY | 2021-08-24 06:16 | XMS_ITS | Encounter Summary ---
:1990 Author Care Team Providers Name Role Phone Capo Herr Primary Care Provider [phone] Reason for Visit None recorded. Assessment and [...] Surgeries None ? ? recorded. Imaging Non-stress 07/20/2021 [facility] Medications Name Start Date ? ? escitalopram 10 mg tablet ? TAKE 1 TABLET BY MOUTH EVERY DAY ? Medications Administered None recorded. Vitals Weight Blood Pressure 272 lbs 146/83 mm[Hg] Results Lab Results None recorded. Allergies Code Code System Name Reaction Severity Onset NKDA ? ? ? Problems Name Status Onset Date Source ? Active 02/19/2021 ? Gestational Diabetes Mellitus, Class a>1< Active
--- OUTSIDE RECORDS SUMMARY | 2021-08-24 06:17 | XMS_ITS | Encounter Summary ---
:1990 Author Care Team Providers Name Role Phone Capo Herr Primary Care Provider [phone] Reason for Visit None recorded. Assessment and Plan 1. condition affecting obs tetrical care of mother ? US, obstetric, follow-up Discussion Note: None recorded.Patient educational handouts: No information available. Plan of Care Reminders Provider Appointments 3Hr on or around Vidhya The rese Glucose 10/10/2021 [facility] None ? ? recorded. Referral None ? ? recorded. Procedures None ? ? recorded. Surgeries None ? ? recorded. Imaging US, 06/12/2021 [place] [facility], Follow-up Medications Name Start Date ? [...] Mellitus, Class a>1< Active 2021 ? Breech P
--- OUTSIDE RECORDS SUMMARY | 2021-08-24 06:17 | XMS_ITS | Encounter Summary ---
:1990 Author Care Team Providers Name Role Phone Capo Adam Herr Primary Care Provider [phone] Reason for Visit OB visit Assessment and [...] BMI Blood Pressure 5 ft 6 in 268 lbs 43.3 kg/m2 125/80 mm[Hg] Results Lab Results None recorded. Allergies Code Code System Name Reaction Severity Onset NKDA ? ? ? Problems Name Status Onset Date Source ? Active 02/19/2021 ? Gestational Diabetes Mellitus, Class a>1< Active 2021 ? Breech Presentation Active 07/13/2021
--- OUTSIDE RECORDS SUMMARY | 2021-08-24 06:17 | XMS_ITS | Encounter Summary ---
:1990 Author Care Team Providers Name Role Phone Capo Herr Primary Care Provider [phone] Reason for Visit OB visit Assessment and Plan 1. Routine care 2. Abnormal glucose tolerance te st Discussion Note: None recorded.Patient educational handouts: No [...] BMI Blood Pressure 5 ft 6 in 269 lbs 43.4 kg/m2 120/80 mm[Hg] Results Lab Results None recorded. Allergies Code Code System Name Reaction Severity Onset NKDA ? ? ? Problems Name Status Onset Date Source ? Active 02/19/2021 ? Gestational Diabetes Mellitus, Class a>1< Active 03
[2021-08-24 07:06] LABS: Glucose Point of Care 88 mg/dl (65-105)
[2021-08-24] MEDS: LACTATED RINGERS 1,000 ML 125 ML IV CONT ×2 (07:11→10:50)
--- NOTE | 2021-08-24 07:20 | P.HP_ITS ---
H&P: HPI History of Present Illness Date/Time: 08/24/21 07:20 Chief Complaint: induction of labor Narrative: Alysa is a 31yo G1 at 39.2 for IOL with advanced cervical dilation. had COVID a couple weeks ago. complicated by anxiety and LGA and GDMA1. Also Rh neg. Review of Systems Review of Systems: All systems reviewed & are unremarkable except as noted in HPI and below PMFSH Past Medical History Medical History Blood in stool Healthy adult Patient denies significant medical history Family History Family History (Updated 08/08/21 @ 14:41 by Sabas Khanna RN) Grandparent Diabetes mellitus Social History Social History Smoking status: Never smoker Alcohol intake: current Drinks per week: 2 Substance use: never Substance use type: does not use Gender identity (if verbalized by the patient): Female Spiritual care concerns: No Meds Home Medications and Allergies Home Medications Medication Instructions Recorded Confirmed Type escitalopram oxalate 10 mg tablet 10 mg PO DAILY 07/25/20 08/17/21 History cholecalciferol (vitamin D3) 125 125 mcg PO DAILY 02/16/21 08/17/21 History mcg (5,000 unit) capsule ferrous sulfate 325 mg PO DAILY 08/08/21 08/17/21 History PNV cmb#95-ferrous fumarate-FA 1 tablet PO DAILY 08/17/21 08/17/21 History [] aspirin 81 mg PO DAILY 08/17/21 08/17/21 History Allergies Allergy/AdvReac Type Severity Reaction Status Date / Time [place] And Derivatives AdvReac Mild Ulcers Verified 02/16/21 08:58 Vital Signs Vital Signs - 24 hr 08/24/21 06:52 08/24/21 06:57 08/24/21 07:02 Pulse Rate Blood Pressure Pulse Oximetry 97 96 98 08/24/21 07:04 08/24/21 07:07 08/24/21 07:14 Pulse Rate 78 Blood Pressure 132/90 Pulse Oximetry 98 98 08/24/21 07:19 Pulse Rate Blood Pressure Pulse Oximetry 99 Exam Const: General: no acute distress Resp: Effort & Inspection: normal respiratory effort Auscultation: clear to auscultation bilaterally Cardio: Rate: regular rate Rhythm: regular rhythm GI: GI Palp: Yes Soft to palpation Extrem: General: normal to inspection Assessment and Plan Assessment and plan (1) GDM, class A1: Code(s): O24.410 - Gestational diabetes mellitus in , diet controlled Status: Acute (2) LGA (large for gestational age) fetus: Status: Acute (3) Encounter for induction of labor: Code(s): Z34.90 - Encounter for supervision of normal , unspecified, unspecified trimester Status: Acute Additional Plan Here for induction of labor- GBSneg pitocin per protocol FHT category 2 without accels prior to AROM, large accel with AROM AROM thin mec /-2
[2021-08-24 07:23] LABS: Basophils Percent Auto 0.1 % (0.2-1.2); Eosinophils Absolute Auto 0.1 K/mm3 (0-0.3); Eosinophils Percent Auto 0.7 % (0-4.4); Hemoglobin 12.5 g/dL (12.0-15.0); Immature Granulocyte Absolute 0.07 K/mm3 (0.00-0.031); Immature Granulocyte Percent A 0.7 % (0-0.5); Lymphocytes Absolute Auto 1.61 K/mm3 (0.9-3.2); Lymphocytes Percent Auto 15.5 % (18.3-44.2); Mean Corpuscular HGB Conc 33.8 g/dl (32-36); Mean Corpuscular Hemoglobin 29.4 pg (26-34); Mean Corpuscular Volume 87.1 fl (80-100); Mean Platelet Volume 9.9 fl (7.4-10.4); Monocytes Absolute Auto 0.8 K/mm3 (0.1-0.6); Monocytes Percent Auto 7.3 % (2.6-8.5); Neutrophils Absolute Auto 7.8 K/mm3 (1.3-6.7); Neutrophils Percent Auto 75.7 % (45.5-73.1); Platelet Count Result 249 k/mm3 (150-375); Red Blood Count 4.25 M/mm3 (4.2-5.4); Red Cell Distribution Width 13.9 % (11.5-14.5); White Blood Count 10.4 K/mm3 (4.5-10.0)
[2021-08-24] MEDS: OXYTOCIN 30 UNITS/NS 500 ML 30 UNITS/500 ML BAG IV CONT (08:13)
[2021-08-24 09:25] LABS: Glucose Point of Care 87 mg/dl (65-105)
--- NOTE | 2021-08-24 10:19 | WPDANESEPPF ---
Anes - Initial Pre Proc Eval Date/Time: 08/24/21 10:19 Surgeon: Vidhya Elliott MD Pre Op Diagnosis: Induction of Labor Patient Data Age: 31 Gender: F Height: 1.68 m Weight: 123 kg Last Vital Signs Pulse 65 08/24/21 10:19 BP 123/70 08/24/21 10:19 Pulse Ox 100 08/24/21 10:17 Allergies Allergy/AdvReac Type Severity Reaction Status Date / Time [place] And Derivatives AdvReac Mild Ulcers Verified 02/16/21 08:58 Home Medications Medication Instructions Recorded Confirmed Type escitalopram oxalate 10 mg tablet 10 mg PO DAILY 07/25/20 08/24/21 History cholecalciferol (vitamin D3) 125 125 mcg PO DAILY 02/16/21 08/24/21 History mcg (5,000 unit) capsule ferrous sulfate 325 mg PO DAILY 08/08/21 08/24/21 History PNV cmb#95-ferrous fumarate-FA 1 tablet PO DAILY 08/17/21 08/24/21 History [] aspirin 81 mg PO DAILY 08/17/21 08/24/21 History Laboratory Tests 08/24/21 08/24/21 08/24/21 06:47 06:47 06:47 WBC 10.4 K/mm3 H K/mm3 (4.5-10.0) RBC 4.25 M/mm3 M/mm3 (4.2-5.4) Hgb 12.5 g/dL g/dL (12.0-15.0) Hct 37.0 % % (37.0-47.0) MCV 87.1 fl fl (80-100) MCH 29.4 pg pg (26-34) MCHC 33.8 g/dl g/dl (32-36) RDW 13.9 % % (11.5-14.5) Plt Count 249 k/mm3 k/mm3 (150-375) MPV 9.9 fl fl (7.4-10.4) Immature Gran % (Auto) 0.7 % H % (0-0.5) Neut % (Auto) 75.7 % H % (45.5-73.1) Lymph % (Auto) 15.5 % L % (18.3-44.2) [place] % (Auto) 7.3 % % (2.6-8.5) Eos % (Auto) 0.7 % % (0-4.4) Baso % (Auto) 0.1 % L % (0.2-1.2) Lymph # (Auto) 1.61 K/mm3 K/mm3 (0.9-3.2) [place] # (Auto) 0.8 K/mm3 H K/mm3 (0.1-0.6) Eos # (Auto) 0.1 K/mm3 K/mm3 (0-0.3) Baso # (Auto) 0.0 K/mm3 K/mm3 (0.0-0.1) Abs Immat Gran (auto) 0.07 K/mm3 H K/mm3 (0.00-0.031) Absolute Neuts (auto) 7.8 K/mm3 H K/mm3 (1.3-6.7) Absolute Nucleated RBC 0.0 K/mm3 K/mm3 (0.0-0.012) Nucleated RBC % 0.0 % % (0.0-0.2) POC Capillary Glucose RPR Pending Blood Type O Negative Antibody Screen Negative 08/24/21 08/24/21 06:50 09:22 WBC RBC Hgb Hct MCV MCH MCHC RDW Plt Count MPV Immature Gran % (Auto) Neut % (Auto) Lymph % (Auto) [place] % (Auto) Eos % (Auto) Baso % (Auto) Lymph # (Auto) [place] # (Auto) Eos # (Auto) Baso # (Auto) Abs Immat Gran (auto) Absolute Neuts (auto) Absolute Nucleated RBC Nucleated RBC % POC Capillary Glucose 88 mg/dl mg/dl 87 mg/dl mg/dl (65-105) (65-105) RPR Blood Type Antibody Screen Patient hx anesthesia problems: none Family hx anesthesia problems: none Results Review: All pre-operative results and documents have been reviewed as part of the pre-operative evaluation. [facility] Past Medical History Medical History GDM, class A1 Family History Family History Grandparent Diabetes mellitus Social History Social History Smoking status: Never smoker Alcohol intake: current Drinks per week: 2 Substance use: never Substance use type: does not use Gender identity (if verbalized by the patient): Female Spiritual care concerns: No Anes - Eval Final PreProcedure Day of Procedure 08/24/21 10:19 Patient weight: morbidly obese Neurological: alert and oriented ASA classification: III Emergent: no Anesthetic plan: proceed Anesthesia type and monitoring: regional epidural and daksha
[2021-08-24 11:30] LABS: Glucose Point of Care 85 mg/dl (65-105)
[2021-08-24 13:49] LABS: Glucose Point of Care 78 mg/dl (65-105)
--- NOTE | 2021-08-24 16:28 | WPDHPUPDATE1 ---
History and Physical Update Update Date/Time: 08/24/21 16:28 History and Physical has been reviewed, including an updated exam of the patient. Slow progress from 8cm to complete today. No pushing for 2 hours, 0 station, great effort but no descent. Baby ROP, attempt to rotate, but baby rotated back. OFfered continue pushing in different position vs CS for FTD. Pt and discussed and she is exhausted. She prefers CS at this time. Discussed RBA, consented. Anesthesia aware, will proceed. Risks, benefits, and alternatives have been discussed and questions answered. Patient agrees to proceed with procedure.
--- NOTE | 2021-08-24 18:05 | P.PCNOB_ITS ---
OB - Delivery Note Procedure Delivery date: 08/24/21 Procedure: primary low transverse section Intrapartal Events: Arrest of Descent and Ineffetive Pushing/Maternal Exhaustion Induction method: AROM and Per Pitocin Protocol Delivery monitor: External FHT and External Uterine Route of delivery: Prior to decision for section, ACOG/SMFM labor guidelines were considered and discussed with the patient and staff. Decision made to proceed with the section.: Yes Episiotomy description: None Laceration Description: None Specimen: Yes (placenta) Quantitative Blood Loss (ml): 780 Anesthesia type: Spinal Disposition: Floor Complications: none Narrative: The patient was taken to the OR and received spinal anesthesia. She was placed in dorsal supine position with left lateral tilt. SCDs and naylor were placed. She was prepped and draped in the normal sterile fashion. A Pfannensteil skin incision was made and carried through to the underlying layer of fascia. The fascia was incised in the midline and then extended laterally using Oh scissors. The muscles were in the midline and the peritoneum was entered bluntly. The peritoneal incision was extended inferiorly and superiorly with care to avoid the bladder. The bladder blade was then inserted, the vesicouterine peritoneum was grasped, incised with Metzenbaum scissors, and a bladder flap created. The bladder blade was reinserted. A low transverse uterine incision was made with a scalpel and extended bluntly. AROM was performed and fluid was noted to be clear. The head was delivered, followed by the remainder of the baby. The baby's oropharynx was suctioned. After 30 seconds, the cord was clamped and cut and the was handed off. Cord blood was obtained and the placenta was then removed manually. The uterus was exteriorized. A moist lap sponge was used to curette the endometrium. A cervical extension about 3cm below the hysterotomy was identified and sutured in its entirety. The uterine incision was then closed with two layers of 0-Vicryl in a running, locking fashion. Good hemostasis was noted. The posterior cul de sac was irrigated with normal saline and cleared of all clot and debris. The uterus was returned to the abdomen. Both lateral gutters were then irrigated. The rectus muscles were inspected and found to be hemostatic. The fascia was reapproximated using 0-Vicryl in running fashion. The subcutaneous tissue was irrigated with normal saline and made hemostatic with Bovie electrocautery. The subcutaneous tissue was reapproximated with a layer of running 2-0 plain gut. The skin was then closed with absorbable talon. Steri strips and a bandage were applied. The uterus was evacuated. The patient tolerated the procedure very well. All counts were correct. She was taken to the recovery room in good condition. [place] Baby Date of : 08/24/21 Time of : 17:23 Weeks of gestation at delivery: 39 Infant gender: Female Weight (pounds): 7 Weight (ounces): 12 presentation: vertex position: Right Occiput Posterior Placenta delivery description: Manual Removal Cord Vessel Description: 3 Vessels, Nuchal Cord and Delayed Cord Clamping score one minute: 8 score five minutes: 9
[2021-08-24] MEDS: LORATADINE 10 MG TABLET PO (19:15)
[2021-08-24] MEDS: OXYTOCIN 30 UNITS/NS 500 ML 30 UNITS/500 ML BAG 125 UNITS IV CONT ×2 (20:27→23:45)
--- NOTE | 2021-08-24 20:35 | ADMGEN ---
This patient, Alysa Ching, was admitted to OB 2nd Floor Room 291-00. Patient/family oriented to hospital policies and general routines including ID bracelet, bed and alarms, visiting hours, pain management, procedures, bathroom and other care routines, personal items, smoking policy, room service/diet, and visiting hours. Information on how to activate the Rapid Response Team has been discussed. Patient/Family are encouraged to report perceived risks to care and to ask questions if they do not understand what they are told or what they should do.
[2021-08-24] MEDS: LANOLIN (LANSINOH) 7.5 GM CREAM 1 APPLIC TOPICAL (21:00)
[2021-08-24] MEDS: miSOPROStol 200 MCG TABLET 800 MCG RECTAL (21:25)
[2021-08-24] MEDS: OXYTOCIN 30 UNITS/NS 500 ML 30 UNITS/500 ML BAG 250 UNITS IV CONT (21:25)
[2021-08-24] MEDS: METHYLERGONOVINE MALEATE 0.2 MG/ML VIAL IM (21:25)
[2021-08-24 21:51] LABS: Hemoglobin 10.6 g/dL (12.0-15.0)
[2021-08-24] MEDS: SODIUM CHLORIDE 0.9% IV 1,000 ML 999 ML IV CONT (22:50)
[2021-08-24 23:27] LABS: INR 1.2; Partial Thromboplastin Time 28.4 SECONDS (22.3-36.8)
[2021-08-24] MEDS: LACTATED RINGERS 1,000 ML 999 ML IV CONT (23:30)
[2021-08-24] MEDS: MORPHINE SULFATE (*CRX) 2 MG/ML INJ 5 MG IV PUSH (23:32)
[2021-08-24 23:33] LABS: Fibrinogen 281 mg/dl (215-510)
--- NOTE | 2021-08-24 23:50 | PM.OBPNVD ---
OB - PN: Subj Subjective Date/time seen: 08/24/21 23:50 Narrative: CTSP for hemorrhage. Total of about 2600cc including surgical loss now. s/p cytotec, pitocin, and methergine and evacuation of clots by L and D RN. When I arrived bleeding mild. 5mg morphine given IV. About 50cc more clot evacuated. Uterine incision palpated intact. Vagina explored with no lacerations seen, cervix appears intact, though is very floppy. Attempted to place Bakri balloon, but would not advance into uterus. On US while attempting placement uterine cavity empty and uterus appears clamped down without clot in it. Bleeding monitored for about 20 more minutes and very minimal. VS stable throughout with no hypotension or tachycardia. HGB 2 hours ago 10.6. We discussed that in am it will be significantly lower than this and blood transfusion may be needed depending on the level of anemia and on her symptoms. Questions answered. COntinue one more bag of pitocin at 125cc/hr. OB - PN: Obj Data Labs CBC & Chem 7: 08/24/21 21:37 Labs: Laboratory Results - last 24 hr 08/24/21 08/24/21 08/24/21 06:47 06:47 06:50 WBC 10.4 H RBC 4.25 Hgb 12.5 Hct 37.0 MCV 87.1 MCH 29.4 MCHC 33.8 RDW 13.9 Plt Count 249 MPV 9.9 Immature Gran % (Auto) 0.7 H Neut % (Auto) 75.7 H Lymph % (Auto) 15.5 L [place] % (Auto) 7.3 Eos % (Auto) 0.7 Baso % (Auto) 0.1 L Lymph # (Auto) 1.61 [place] # (Auto) 0.8 H Eos # (Auto) 0.1 Baso # (Auto) 0.0 Abs Immat Gran (auto) 0.07 H Absolute Neuts (auto) 7.8 H Absolute Nucleated RBC 0.0 Nucleated RBC % 0.0 PT INR APTT Fibrinogen POC Capillary Glucose 88 Blood Type O Negative Antibody Screen Negative 08/24/21 08/24/21 08/24/21 09:22 11:26 13:46 WBC RBC Hgb Hct MCV MCH MCHC RDW Plt Count MPV Immature Gran % (Auto) Neut % (Auto) Lymph % (Auto) [place] % (Auto) Eos % (Auto) Baso % (Auto) Lymph # (Auto) [place] # (Auto) Eos # (Auto) Baso # (Auto) Abs Immat Gran (auto) Absolute Neuts (auto) Absolute Nucleated RBC Nucleated RBC % PT INR APTT Fibrinogen POC Capillary Glucose 87 85 78 Blood Type Antibody Screen 08/24/21 08/24/21 08/24/21 21:37 22:58 22:58 WBC RBC Hgb 10.6 L Hct 32.0 L MCV MCH MCHC RDW Plt Count MPV Immature Gran % (Auto) Neut % (Auto) Lymph % (Auto) [place] % (Auto) Eos % (Auto) Baso % (Auto) Lymph # (Auto) [place] # (Auto) Eos # (Auto) Baso # (Auto) Abs Immat Gran (auto) Absolute Neuts (auto) Absolute Nucleated RBC Nucleated RBC % PT 15.0 H INR 1.2 APTT 28.4 Fibrinogen 281 POC Capillary Glucose Blood Type Antibody Screen OB - PN A/P Time Spent With Patient Time: Total time spent is greater than 50% in coordination of care (as documented) at patient's floor/unit and/or counseling patient:
[2021-08-24 23:57] LABS: D Dimer 12.56 ug/mL (<0.48)
[2021-08-25] VITALS (17 sets, daily range): BP systolic 93–123; BP diastolic 53–75; PULSE 76–94; RESP 16–18; TEMP 35.9–37.1; O2SAT 98–100
[2021-08-25] MEDS: IBUPROFEN 600 MG TABLET PO ×2 (03:57→17:22)
[2021-08-25] MEDS: SIMETHICONE 80 MG TAB.CHEW PO (03:57)
[2021-08-25] MEDS: DEXTROSE 5%/0.45% SOD CHL 1,000 ML 125 ML IV CONT (04:01)
[2021-08-25 05:44] LABS: Basophils Percent Auto 0.1 % (0.2-1.2); Eosinophils Percent Auto 0.3 % (0-4.4); Hematocrit 21.7 % (37.0-47.0); Hemoglobin 7.4 g/dL (12.0-15.0); Immature Granulocyte Absolute 0.08 K/mm3 (0.00-0.031); Immature Granulocyte Percent A 0.7 % (0-0.5); Lymphocytes Absolute Auto 1.55 K/mm3 (0.9-3.2); Lymphocytes Percent Auto 12.9 % (18.3-44.2); Mean Corpuscular HGB Conc 34.1 g/dl (32-36); Mean Corpuscular Volume 87.9 fl (80-100); Mean Platelet Volume 9.9 fl (7.4-10.4); Monocytes Absolute Auto 0.7 K/mm3 (0.1-0.6); Monocytes Percent Auto 5.9 % (2.6-8.5); Neutrophils Absolute Auto 9.6 K/mm3 (1.3-6.7); Neutrophils Percent Auto 80.1 % (45.5-73.1); Platelet Count Result 174 k/mm3 (150-375); Red Blood Count 2.47 M/mm3 (4.2-5.4); Red Cell Distribution Width 14.1 % (11.5-14.5)
[2021-08-25] MEDS: HYDROcodone/acetaminophen (*CRX) 5-325 MG TABLET 1 TAB PO ×2 (05:44→08:59)
--- NOTE | 2021-08-25 07:42 | PM.OBPNVD ---
OB - PN: Subj Subjective Date/time seen: 08/25/21 07:42 Patient comments: no complaints baby status: nursing well Narrative: POD 1 from primary CS with pp hemorrhage. Doing well. Normal lochia. Eating. Hgb 7+. Not up yet but no dizziness. Is fatigued. OB - PN: Obj Data Labs CBC & Chem 7: 08/25/21 05:25 Labs: Laboratory Results - last 24 hr 08/24/21 08/24/21 08/24/21 06:47 09:22 11:26 WBC RBC Hgb Hct MCV MCH MCHC RDW Plt Count MPV Immature Gran % (Auto) Neut % (Auto) Lymph % (Auto) [place] % (Auto) Eos % (Auto) Baso % (Auto) Lymph # (Auto) [place] # (Auto) Eos # (Auto) Baso # (Auto) Abs Immat Gran (auto) Absolute Neuts (auto) Absolute Nucleated RBC Nucleated RBC % PT INR APTT Fibrinogen D-Dimer POC Capillary Glucose 87 85 Blood Type O Negative Antibody Screen Negative Crossmatch See Detail 08/24/21 08/24/21 08/24/21 13:46 21:37 22:58 WBC RBC Hgb 10.6 L Hct 32.0 L MCV MCH MCHC RDW Plt Count MPV Immature Gran % (Auto) Neut % (Auto) Lymph % (Auto) [place] % (Auto) Eos % (Auto) Baso % (Auto) Lymph # (Auto) [place] # (Auto) Eos # (Auto) Baso # (Auto) Abs Immat Gran (auto) Absolute Neuts (auto) Absolute Nucleated RBC Nucleated RBC % PT 15.0 H INR 1.2 APTT 28.4 Fibrinogen D-Dimer POC Capillary Glucose 78 Blood Type Antibody Screen Crossmatch 08/24/21 08/25/21 22:58 05:25 WBC 12.0 H RBC 2.47 L Hgb 7.4 L D Hct 21.7 L MCV 87.9 MCH 30.0 MCHC 34.1 RDW 14.1 Plt Count 174 MPV 9.9 Immature Gran % (Auto) 0.7 H Neut % (Auto) 80.1 H Lymph % (Auto) 12.9 L [place] % (Auto) 5.9 Eos % (Auto) 0.3 Baso % (Auto) 0.1 L Lymph # (Auto) 1.55 [place] # (Auto) 0.7 H Eos # (Auto) 0.0 Baso # (Auto) 0.0 Abs Immat Gran (auto) 0.08 H Absolute Neuts (auto) 9.6 H Absolute Nucleated RBC 0.0 Nucleated RBC % 0.0 PT INR APTT Fibrinogen 281 D-Dimer 12.56 H POC Capillary Glucose Blood Type Antibody Screen Crossmatch OB - PN A/P Assessment and Plan (1) hemorrhage: Code(s): O72.1 - Other immediate hemorrhage Status: Acute (2) delivery delivered: Code(s): O82 - Encounter for delivery without indication Status: Acute (3) Anemia due to blood loss: Code(s): D50.0 - Iron deficiency anemia secondary to blood loss (chronic) Status: Acute Plan day: 1 Plan: routine care Comments: 2 units pRBCs today. pt consented. otherwise routine pp care. Time Spent With Patient Time: Total time spent is greater than 50% in coordination of care (as documented) at patient's floor/unit and/or counseling patient: Exam Narrative: NAD abdomen soft, appropriately tender, incision bandaged Extremities nontender with 1+ edema
[2021-08-25] MEDS: POLYSACCHARIDE IRON COMPLEX 150 MG CAPSULE PO ×2 (08:59→17:22)
[2021-08-25] MEDS: ESCITALOPRAM OXALATE 10 MG TABLET PO (08:59)
[2021-08-25] MEDS: DOCUSATE SODIUM 100 MG CAPSULE PO ×2 (08:59→17:22)
[2021-08-25] MEDS: MULTIVIT/MIN/PREN/FOL AC/IRON TABLET 1 TAB PO (08:59)
[2021-08-25] MEDS: diphenhydrAMINE HCl CAP 25 MG CAPSULE PO (09:02)
[2021-08-25] MEDS: SODIUM CHLORIDE 0.9% IV 250 ML 30 ML IV CONT (09:20)
[2021-08-25] MEDS: TUBING, BLOOD PLUM PUMP TUBING 1 EACH XX (09:28)
--- NOTE | 2021-08-25 09:57 | WPDANLDPN2 ---
Anes-Prog Note L&D Date/Time: 08/25/21 09:57 Comfortable throughout: labor and section Neuraxial method: epidural Epidural/Spinal procedure site: clean & non-tender Neuro status: Neuro function grossly intact. Cardiovascular status: normal Respiratory status: normal Airway patency: baseline Mental status: baseline Post-Op hydration status: normal Vital Signs: Last Vital Signs Temp 96.8 F L 08/25/21 09:43 Pulse 78 08/25/21 09:43 Resp 16 08/25/21 09:43 BP 98/55 L 08/25/21 09:43 Pulse Ox 100 08/25/21 09:43 Pain score (VAS): 10 I/O: Intake & Output 08/24/21 08/25/21 08/25/21 23:59 07:59 15:59 Intake Total 2500 3100 1182 Output Total 2056 1750 900 Balance 444 1350 282 Post-procedural complaints: none Patient feedback: Patient satisfied with anesthetic care.
--- NOTE | 2021-08-25 09:59 | WPDANLDNPN2 ---
Anes-Prog Note L&D-Neuraxial Date/Time: 08/25/21 09:59 Neuraxial medications: epidural PF morphine Opiod-related complaints: none Patient feedback: Patient satisfied with post-operative pain management.
--- NOTE | 2021-08-25 10:40 | WPDANLDNPN2 ---
Anes-Prog Note L&D-Neuraxial Date/Time: 08/25/21 10:40 Neuraxial medications: intrathecal PF morphine Opiod-related complaints: none Patient feedback: Patient satisfied with post-operative pain management.
--- NOTE | 2021-08-25 10:40 | WPDANLDPN2 ---
Anes-Prog Note L&D Date/Time: 08/25/21 10:40 Comfortable throughout: labor and section Neuraxial method: spinal Epidural/Spinal procedure site: clean & non-tender Neuro status: Neuro function grossly intact. Cardiovascular status: normal Respiratory status: normal Airway patency: baseline Mental status: baseline Post-Op hydration status: normal Vital Signs: Last Vital Signs Temp 97.1 F L 08/25/21 10:00 Pulse 81 08/25/21 10:00 Resp 16 08/25/21 10:00 BP 101/64 08/25/21 10:00 Pulse Ox 100 08/25/21 10:00 Pain score (VAS): 0/10 I/O: Intake & Output 08/24/21 08/25/21 08/25/21 23:59 07:59 15:59 Intake Total 2500 3100 1524 Output Total 2056 1750 900 Balance 444 1350 624 Post-procedural complaints: none Patient feedback: Patient satisfied with anesthetic care. Other findings: epidural stopped functioning and had to place a spinal for c section
[2021-08-25] MEDS: HYDROcodone/acetaminophen (*CRX) 10-325 MG TABLET 1 TAB PO (17:22)
[2021-08-26] MEDS: HYDROcodone/acetaminophen (*CRX) 10-325 MG TABLET 1 TAB PO (00:35)
[2021-08-26] MEDS: IBUPROFEN 600 MG TABLET PO ×4 (00:36→23:36)
--- NOTE | 2021-08-26 08:09 | PM.OBPNVD ---
OB - PN: Subj Subjective Date/time seen: 08/26/21 08:09 Patient comments: no complaints baby status: doing well [place] feeding status: breast and bottle feeding OB - PN: Obj Data Labs CBC & Chem 7: 08/25/21 05:25 Labs: Laboratory Results - last 24 hr 08/24/21 06:47 Blood Type O Negative Antibody Screen Negative Crossmatch See Detail OB - PN A/P Plan day: 2 Time Spent With Patient Time: Total time spent is greater than 50% in coordination of care (as documented) at patient's floor/unit and/or counseling patient: Review of Systems Review of Systems: All systems reviewed & are unremarkable except as noted in HPI and below Exam Narrative: Incision clean, dry, and intact. Const: General: cooperative, healthy appearing and comfortable
[2021-08-26 08:30] VITALS: BP 123/55; PULSE 68; RESP 18; TEMP 36.3
[2021-08-26] MEDS: HYDROcodone/acetaminophen (*CRX) 5-325 MG TABLET 1 TAB PO ×4 (08:37→23:37)
[2021-08-26] MEDS: DOCUSATE SODIUM 100 MG CAPSULE PO ×2 (08:38→16:31)
[2021-08-26] MEDS: ESCITALOPRAM OXALATE 10 MG TABLET PO (08:38)
[2021-08-26] MEDS: POLYSACCHARIDE IRON COMPLEX 150 MG CAPSULE PO ×2 (08:38→16:31)
[2021-08-26] MEDS: MULTIVIT/MIN/PREN/FOL AC/IRON TABLET 1 TAB PO (08:38)
[2021-08-26 08:58] LABS: Basophils Percent Auto 0.1 % (0.2-1.2); Eosinophils Absolute Auto 0.1 K/mm3 (0-0.3); Eosinophils Percent Auto 1.3 % (0-4.4); Immature Granulocyte Absolute 0.11 K/mm3 (0.00-0.031); Lymphocytes Absolute Auto 1.39 K/mm3 (0.9-3.2); Lymphocytes Percent Auto 12.8 % (18.3-44.2); Mean Corpuscular HGB Conc 33.3 g/dl (32-36); Mean Corpuscular Hemoglobin 29.7 pg (26-34); Mean Corpuscular Volume 89.2 fl (80-100); Mean Platelet Volume 9.5 fl (7.4-10.4); Monocytes Absolute Auto 0.6 K/mm3 (0.1-0.6); Monocytes Percent Auto 5.3 % (2.6-8.5); Neutrophils Absolute Auto 8.6 K/mm3 (1.3-6.7); Neutrophils Percent Auto 79.5 % (45.5-73.1); Platelet Count Result 166 k/mm3 (150-375); Red Blood Count 2.69 M/mm3 (4.2-5.4); Red Cell Distribution Width 15.2 % (11.5-14.5); White Blood Count 10.9 K/mm3 (4.5-10.0)
[2021-08-26 19:25] VITALS: BP 124/76; PULSE 72; RESP 16; TEMP 37; O2SAT 98
--- NOTE | 2021-08-27 08:06 | PM.OBPNVD ---
OB - PN: Subj Subjective Date/time seen: 08/27/21 08:06 Patient comments: no complaints, pain well controlled and tolerating diet [place] baby status: doing well and nursing well [place] feeding status: exclusively breast feeding OB - PN: Obj Data Labs CBC & Chem 7: 08/26/21 08:40 Labs: Laboratory Results - last 24 hr 08/26/21 08:40 WBC 10.9 H RBC 2.69 L Hgb 8.0 L Hct 24.0 L MCV 89.2 MCH 29.7 MCHC 33.3 RDW 15.2 H Plt Count 166 MPV 9.5 Immature Gran % (Auto) 1.0 H Neut % (Auto) 79.5 H Lymph % (Auto) 12.8 L [place] % (Auto) 5.3 Eos % (Auto) 1.3 Baso % (Auto) 0.1 L Lymph # (Auto) 1.39 [place] # (Auto) 0.6 Eos # (Auto) 0.1 Baso # (Auto) 0.0 Abs Immat Gran (auto) 0.11 H Absolute Neuts (auto) 8.6 H Absolute Nucleated RBC 0.0 Nucleated RBC % 0.0 OB - PN A/P Assessment and Plan (1) Anemia due to blood loss: Code(s): D50.0 - Iron deficiency anemia secondary to blood loss (chronic) Status: Acute (2) delivery delivered: Code(s): O82 - Encounter for delivery without indication Status: Acute (3) hemorrhage: Code(s): O72.1 - Other immediate hemorrhage Status: Acute Plan day: 3 Plan: routine care and discharge home Comments: venofer IV prior to DC OTC Slow Fe at home. DC instructions given Time Spent With Patient Time: Total time spent is greater than 50% in coordination of care (as documented) at patient's floor/unit and/or counseling patient: Exam Narrative: NAD abdomen soft, appropriately tender, incision CDI Extremities nontender with 1+ edema
--- NOTE | 2021-08-27 08:10 | PM.DS ---
DS: Admitting Diagnosis Discharge Date 08/27/21 Admitting Diagnosis term DS: Discharge Diagnosis Discharge Diagnosis (1) Anemia due to blood loss: Code(s): D50.0 - Iron deficiency anemia secondary to blood loss (chronic) Status: Acute (2) delivery delivered: Code(s): O82 - Encounter for delivery without indication Status: Acute (3) hemorrhage: Code(s): O72.1 - Other immediate hemorrhage Status: Acute DS: Summary Hospital Course Hospital Course: Alysa was admitted for induction of labor with advanced cervical dilation. She underwent section for failure to descend and had a delayed hemorrhage several hours after surgery. She was stabilized with medications and the bleeding ceased. She received 2 units of pRBCs and the remainder of her recovery was uneventful. Status at Discharge Functional status at discharge: independent ambulation Time Spent with Patient Time attestation: Total time spent providing and/or coordinating discharge services: Exam Narrative: NAD abdomen soft, appropriately tender, incision CDI DS: Data Data Completed and Pending Labs on day of discharge: Labs from last 24 hours 08/26/21 08:40 WBC 10.9 H RBC 2.69 L Hgb 8.0 L Hct 24.0 L MCV 89.2 MCH 29.7 MCHC 33.3 RDW 15.2 H Plt Count 166 MPV 9.5 Immature Gran % (Auto) 1.0 H Neut % (Auto) 79.5 H Lymph % (Auto) 12.8 L [place] % (Auto) 5.3 Eos % (Auto) 1.3 Baso % (Auto) 0.1 L Lymph # (Auto) 1.39 [place] # (Auto) 0.6 Eos # (Auto) 0.1 Baso # (Auto) 0.0 Abs Immat Gran (auto) 0.11 H Absolute Neuts (auto) 8.6 H Absolute Nucleated RBC 0.0 Nucleated RBC % 0.0 Discharge Plan Discharge Attending physician on discharge: Vidhya Elliott Discharging Clinician: Vidhya Elliott Anticipated Discharge Date/Time: 08/27/21 08:07 Patient Disposition: Home, Self-Care Activity: pelvic rest Diet: regular Patient Instructions: Antibiotic Form Stand Alone Forms: General Discharge Information Follow-up/Referrals: Vidhya Elliott MD [Physician] - 1 Week Discharge Medications: New hydrocodone-acetaminophen 5-325 mg Tablet 1 tablet PO Q4-5H PRN (Reason: Moderate Pain (4-6)) Qty: 30 RF: 0 docusate sodium 100 mg Capsule 100 mg PO BID PRN (Reason: constipation) Qty: 60 RF: 0 ibuprofen 600 mg Tablet 600 mg PO Q6H PRN (Reason: Cramping) Qty: 60 RF: 0 Continued cholecalciferol (vitamin D3) 125 mcg (5,000 unit) capsule 125 mcg PO DAILY RF: 0 escitalopram oxalate 10 mg tablet 10 mg PO DAILY RF: 0 PNV cmb#95-ferrous fumarate-FA [] 28 mg iron- 800 mcg Tablet 1 tablet PO DAILY RF: 0 ferrous sulfate 325 mg (65 mg iron) Tablet 325 mg PO DAILY RF: 0 Discontinued aspirin 81 mg Tablet 81 mg PO DAILY RF: 0 Date of admission: 08/24/21 06:00 Primary Care Provider: Capo Herr Admitting Provider: Vidhya Elliott Attending physician on admission: Vidhya Elliott Condition: Stable
[2021-08-27 08:15] VITALS: BP 130/74; PULSE 74; RESP 16; TEMP 36.9; O2SAT 100
[2021-08-27 08:19] LABS: Rapid Plasma Reagin Non-Reactive (NonReactive)
[2021-08-27] MEDS: MULTIVIT/MIN/PREN/FOL AC/IRON TABLET 1 TAB PO (08:54)
[2021-08-27] MEDS: POLYSACCHARIDE IRON COMPLEX 150 MG CAPSULE PO (08:54)
[2021-08-27] MEDS: DOCUSATE SODIUM 100 MG CAPSULE PO (08:54)
[2021-08-27] MEDS: ESCITALOPRAM OXALATE 10 MG TABLET PO (08:55)
[2021-08-27] MEDS: IBUPROFEN 600 MG TABLET PO ×2 (08:55→15:31)
[2021-08-27] MEDS: SIMETHICONE 80 MG TAB.CHEW PO ×2 (10:00→15:31)
[2021-08-27] MEDS: MEASLES,MUMPS,RUBELLA VACCINE 0.5 ML VIAL SUB-Q (15:27)
[2021-08-28 14:20] VITALS: BP 130/74; PULSE 80; RESP 20; TEMP 36.9; O2SAT 100
--- NOTE | 2021-08-28 17:00 | PC.NURSE ---
Called Dr Elliott at 1550 due to patient c/o headache after follow up appointment completed--Patient rated headache as - 2 pain level states Motrin does not relieve it . Informed Dr Elliott patient B/P 130/74 and no other c/o voiced by patient Instructed patient Dr Elliott okay with her headache rating 2 pain level but if headache gets worse or she has any other symptoms of elevated B/P call office. Patient instructed to keep appointment with Dr Elliott on Friday. Patient verbalized her understanding
== END 2021-08-27 16:50 | disposition home or self-care (01) | DRG 787 ==
LOC: ANHLDR 06:14 → ANHOB2 20:35
PROVIDERS: Advanced Practice Midwife; Admitting Provider Obstetrics & Gynecology; PCP Family Medicine; Visit Provider Obstetrics & Gynecology
PROC: 10D00Z1 Extraction of Products of Conception, Low, Open Approach (ICD-10-PCS; CPT 59514; principal; 2021-08-24 16:50)
DX: O24.420 Gestational diabetes mellitus in childbirth, diet controlled (principal); O72.1 Other immediate postpartum hemorrhage; D62 Acute posthemorrhagic anemia; O36.0930 Maternal care for other rhesus isoimmunization, third trimester, not applicable or unspecified; Z37.0 Single live birth; Z3A.39 39 weeks gestation of pregnancy; O77.0 Labor and delivery complicated by meconium in amniotic fluid; O90.81 Anemia of the puerperium; O99.344 Other mental disorders complicating childbirth; F41.9 Anxiety disorder, unspecified; O36.63X0 Maternal care for excessive fetal growth, third trimester, not applicable or unspecified; O75.81 Maternal exhaustion complicating labor and delivery; O62.1 Secondary uterine inertia; O69.81X0 Labor and delivery complicated by cord around neck, without compression, not applicable or unspecified
CPT/HCPCS: 36415; 36430; 82948; 85014; 85018; 85025; 85380; 85384; 85610; 85730; 86592; 86850; 86900; 86901; 86920; 90710; A9270; J2210; J2270; J2274; J2590; J2795; J3010; J7030; J7050; J7120; P9016

== ENCOUNTER 2022-12-24 16:06 | Emergency (ER) | payer BC, SELFPAY ==
[2022-12-24] VITALS (9 sets, daily range): BP systolic 117–142; BP diastolic 63–84; PULSE 62–75; RESP 16–18; TEMP 36.8; O2SAT 99–100
--- NOTE | ~2022-12-24 | US_ITS ---
EXAMINATION: US OB <=14 wk fetus w TV DATE: 12/25/2022 01:05 INDICATION: Vaginal bleeding. TECHNIQUE: Real-time transabdominal and transvaginal pelvic ultrasound was performed. COMPARISON: None. FINDINGS: TRANSABDOMINAL ULTRASOUND: The uterus measures 9.0 x 4.9 x 5.2 cm. TRANSVAGINAL ULTRASOUND: The endometrial complex measures 11 mm in thickness. At the junction of the lower uterine segment and cervix, there is a cyst with 5 mm internal echo that could be a gestational sac with pole. Estimated gestational age would be 6 weeks and 2 days +/- 4 days. No hear t motion is identified, which may be normal at this size. The right ovary measures 3.3 x 2.0 x 3.2 cm . The left ovary measures 3.1 x 2.0 x 2.2 cm. There is normal vascular flow in the ovaries. There is no free fluid in the pelvis. IMPRESSION: 1. Possible gestational sac with pole at the junction of the lower uterine segment and cervix with estimated date of delivery of 08/18/2023. Spontaneous and ectopic are not excl uded. Serial beta hCGs are recommended. Reviewed, dictated and finalized at location A. IMPRESSION: 1. Possible gestational sac with pole at the junction of the lower uteri ne segment and cervix with estimated date of delivery of 08/18/2023. Spontaneous and ectopic are not excluded. Serial beta hCGs are recommen ded.
[2022-12-24 17:09] LABS: Basophils Percent Auto 0.2 % (0.2-1.2); Eosinophils Absolute Auto 0.1 K/mm3 (0-0.3); Eosinophils Percent Auto 1.4 % (0-4.4); Hematocrit 41.2 % (37.0-47.0); Hemoglobin 13.2 g/dL (12.0-15.0); Immature Granulocyte Absolute 0.02 K/mm3 (0.00-0.031); Immature Granulocyte Percent A 0.2 % (0-0.5); Lymphocytes Percent Auto 23.8 % (18.3-44.2); Mean Corpuscular Hemoglobin 28.4 pg (26-34); Mean Corpuscular Volume 88.6 fl (80-100); Monocytes Absolute Auto 0.7 K/mm3 (0.1-0.6); Monocytes Percent Auto 6.8 % (2.6-8.5); Neutrophils Absolute Auto 6.5 K/mm3 (1.3-6.7); Neutrophils Percent Auto 67.6 % (45.5-73.1); Platelet Count Result 290 k/mm3 (150-375); Red Blood Count 4.65 M/mm3 (4.2-5.4); White Blood Count 9.7 K/mm3 (4.5-10.0)
--- NOTE | 2022-12-24 23:17 | ED.PREGNANCY ---
HPI - General Chief complaint: Vaginal Bleeding <Erika Small PA-C - Last Filed: 12/25/22 20:03> Stated complaint: possible miscarriage - vaginal bleeding at 7 weeks <DOROTEO Mann Last Filed: 12/25/22 20:03> Time Seen by Provider: 12/24/22 21:45 <DOROTEO Mann Last Filed: 12/25/22 20:03> Source: patient <DOROTEO Mann Last Filed: 12/25/22 20:03> Mode of arrival: ambulatory <DOROTEO Mann Last Filed: 12/25/22 20:03> Limitations: no limitations <DOROTEO Mann Last Filed: 12/25/22 20:03> History of Present Illness HPI Narrative: This is a 32-year-old G2, P1, about 7 weeks , that presents to the emergency department for increased vaginal bleeding. Reports she has had some spotting today so went to see her OB. Her ultrasound was inconclusive. After her ultrasound she started to have increased bleeding which prompted her to be seen in the ER. Reports some associated pelvic cramping. Denies fevers or vomiting. <DOROTEO Mann Last Filed: 12/25/22 20:03> Related Data Home medications: Home Medications Medication Instructions Recorded Confirmed escitalopram oxalate 10 mg tablet 10 mg PO DAILY 07/25/20 08/24/21 ferrous sulfate 325 mg (65 mg 325 mg PO DAILY 08/08/21 08/24/21 iron) tablet vit no.95-ferrous 1 tablet PO DAILY 08/17/21 08/24/21 fumarate 28 mg-folic acid 800 mcg tablet () <DOROTEO Mann Last Filed: 12/25/22 20:03> Allergies/Adverse reactions: Allergies Allergy/AdvReac Type Severity Reaction Status Date / Time [place] And Derivatives AdvReac Mild Ulcers Verified 12/24/22 15:55 <DOROTEO Mann Last Filed: 12/25/22 20:03> Review of Systems Review of Systems: CONSTITUTIONAL: Denies fever GASTROINTESTINAL: Reports pelvic cramping. Denies nausea, vomiting <Erika Small PA-C - Last Filed: 12/25/22 20:03> All systems reviewed & are unremarkable except as noted in HPI and below <Erika Small PA-C - Last Filed: 12/25/22 20:03> PMFSH Past Medical History Medical History: Medical History (Updated 12/26/22 @ 00:01 by Kenia Barrow) GDM, class A1 <Erika Small PA-C - Last Filed: 12/25/22 20:03> Surgical History Surgical History: Surgical History (Updated 12/24/22 @ 23:18 by Erika Small PA-C) History of <Erika Small PA-C - Last Filed: 12/25/22 20:03> Family History Family History: Family History Grandparent Diabetes mellitus <Erika Small PA-C - Last Filed: 12/25/22 20:03> Social History Social History: Social History Smoking status: Never smoker Alcohol intake: current Drinks per week: 2 Substance use: never Substance use type: does not use Living arrangements: with family Gender identity (if verbalized by the patient): Female Spiritual care concerns: No <Erika Small PA-C - Last Filed: 12/25/22 20:03> Exam Narrative: GENERAL: Well-appearing, well-nourished, and in no acute distress. HEAD: Normocephalic, atraumatic. EYES: EOMI. CHEST: Clear to auscultation. No respiratory distress. No wheezes rales or rhonchi HEART: Regular rate and rhythm. No murmur heard. Normal peripheral pulses. ABDOMEN: Soft, nontender, nondistended, normal active bowel sounds. EXTREMITIES: Normal range of motion. No edema. SKIN: Warm, dry, no rash. NEURO: No focal deficits. Alert and oriented x3. PSYCH: Normal mood and affect PELVIC: Dark red blood and blood clots in the vaginal vault. Able to be cleared, blood slowly oozing from the cervix <Erika Small PA-C - Last Filed: 12/25/22 20:03> Course Course Emergency Course: Patient updated on workup thus far. Care taken over by Dr. Cain at shift change <Erika Small PA-C - L
--- NOTE | 2022-12-24 23:33 | PC.NURSE ---
pt report and care given to JOSUÉ Colin. all questions answered.
[2022-12-25] VITALS (25 sets, daily range): BP systolic 99–136; BP diastolic 59–78; PULSE 60–80; RESP 15–18; TEMP 36.8–36.9; O2SAT 97–100
[2022-12-25] MEDS: ACETAMINOPHEN 500 MG TABLET 1000 MG PO (02:20)
== END 2022-12-25 09:21 | disposition home or self-care (01) ==
PROVIDERS: Preventive Medicine Aerospace Medicine; Emergency Provider Student in an Organized Health Care Education/Training Program; PCP Family Medicine
DX: O20.9 Hemorrhage in early pregnancy, unspecified (principal); Z3A.01 Less than 8 weeks gestation of pregnancy
CPT/HCPCS: 36415; 76801; 76817; 84702; 85025; 85461; 86850; 86900; 86901; 90384; 96372; 99284; A9270; J2790

== ENCOUNTER 2022-12-27 10:11 | Outpatient (CLI) | payer BC, SELFPAY | END 2022-12-27 10:12 | disposition home or self-care (01) | PROVIDERS: PCP Family Medicine; Visit Provider Physician Assistant | DX: O20.9 Hemorrhage in early pregnancy, unspecified (principal); Z3A.00 Weeks of gestation of pregnancy not specified | CPT/HCPCS: 36415; 84702 ==

== ENCOUNTER 2023-01-02 01:22 | Day surgery (SDC) | payer BC, SELFPAY ==
[2022-12-31 11:38] VITALS: BMI 43.5
--- NOTE | 2022-12-31 11:44 | PC.NURSE ---
Report to the Outpatient Waiting Room, entrance under the green pavilion located off [facility], at time 1000 on date 01/02/23. Planned Procedure Time: 1200. Time changes happen often and if your time is changed the preop area will call you the afternoon before. - You and your visitor will be asked to self-screen and do not enter if you have any COVID symptoms. - A mask is optional within the hospital at this time. Patients may have clear liquids (water, carbonated beverages, clear teas, apple juice) until 3 hours prior to surgery with a maximum of 20 ounces. - No food from midnight until time of surgery Take the following medications with a SIP of water the morning of surgery: ESCITALOPRAM DO NOT STOP ANY OF YOUR OTHER PRESCRIPTION MEDICATIONS PRIOR TO SURGERY ?EXCEPT THE FOLLOWING Medications to discontinue per physician: VITAMINS Date to take last dose: NO MORE UNTIL AFTER SURGERY Please no make-up, nail lithuanian, hairspray, perfume, deodorant, or body powder the day of surgery. No jewelry (including any body piercings) or valuables the day of surgery, leave them at home. Please take a shower or bath the night before, or the morning of, surgery with an antibacterial soap. Wear comfortable, loose fitting clothing. - Jewelry must be removed prior to entering the operating room. Rings and piercings that are not removed may be cut off. - The hospital will not accept responsibility for valuables. - Please leave all valuables, including medications, at home the day of surgery. If you are going home after surgery, a licensed medical delivery driver must drive you home. - NO public transportation without another adult if you receive anesthesia. - We recommend that an adult stay with you for 24 hours following discharge. - We also recommend that you do not drive, make important decision, drink alcoholic beverages, or take any drugs that were not prescribed by your health care provider for at least 24 hours after your discharge time. Follow any additional instructions given to you from your surgeon. If you or anyone in your household have experienced Covid symptoms in the past week, please notify your surgeon or the nurse liaison at the phone number below for possible testing. Telephone instructions given to PT Tomas BUCIO and asked if any additional questions and then verbalized understanding. Patient advised to call surgeon office or pre surgery nurse liaison [phone] if any additional questions.
[2023-01-02] MEDS: LACTATED RINGERS 1,000 ML 30 ML IV CONT (10:40)
--- NOTE | 2023-01-02 10:49 | WPDANESEPPF ---
Anes - Initial Pre Proc Eval Procedure: Operation Date: 01/02/23 12:00 Proposed Procedures p Suction Dilation and Curettage - Pham Hernadez MD Date/Time: 01/02/23 10:49 Surgeon: Pham Hernadez MD Pre Op Diagnosis: retained products of conception Patient Data Age: 32 Gender: F Height: 1.68 m Weight: 122.5 kg Allergies Allergy/AdvReac Type Severity Reaction Status Date / Time [place] And Derivatives AdvReac Mild Ulcers Verified 12/31/22 11:37 Home Medications Medication Instructions Recorded Confirmed Type escitalopram oxalate 10 mg tablet 10 mg PO DAILY 07/25/20 12/31/22 History ferrous sulfate 325 mg (65 mg 325 mg PO DAILY 08/08/21 12/31/22 History iron) tablet vit no.95-ferrous 1 tablet PO DAILY 08/17/21 12/31/22 History fumarate 28 mg-folic acid 800 mcg tablet () Patient hx anesthesia problems: none Family hx anesthesia problems: none Results Review: All pre-operative results and documents have been reviewed as part of the pre-operative evaluation. [facility], [facility] Past Medical History Medical History GDM, class A1 Surgical History Surgical History History of Family History Family History Grandparent Diabetes mellitus Social History Social History Smoking status: Never smoker Alcohol intake: current Drinks per week: 2 Alcohol use details: RARE WHEN NOT Substance use: never Substance use type: does not use Living arrangements: with family Gender identity (if verbalized by the patient): Female Spiritual care concerns: No Anes - Eval Final PreProcedure Day of Procedure 01/02/23 10:49 Patient weight: morbidly obese Heart: regular rate and rhythm Lungs: clear to auscultation Airway: Mallampati scale class II Neurological: alert and oriented Last oral intake: >/= 8 hours ASA classification: III Emergent: no Anesthetic plan: proceed Anesthesia type and monitoring: general GIVS and standard monitoring Results Review: All pre-operative results and documents have been reviewed as part of the pre-operative evaluation. Informed Consent: The patient's anesthetic plan and its attendant risks and benefits were discussed with the patient/family/POA. Questions were solicited and answers provided to the satisfaction of the patient/family/POA.
[2023-01-02] MEDS: ACETAMINOPHEN 500 MG TABLET 1000 MG PO (11:00)
[2023-01-02 11:53] VITALS: BP 133/78; PULSE 70; RESP 16; TEMP 36.4; O2SAT 98
--- NOTE | 2023-01-02 11:58 | WPDHPUPDATE1 ---
History and Physical Update Update Date/Time: 01/02/23 11:58 History and Physical has been reviewed, including an updated exam of the patient. There are NO changes in the patient's condition. Risks, benefits, and alternatives have been discussed and questions answered. Patient agrees to proceed with procedure.
[2023-01-02] MEDS: LIDOCAINE HCL 1% LOCAL INJ 20 ML VIAL INFILTRATE (12:25)
--- NOTE | 2023-01-02 12:31 | P.OP_ITS ---
Procedure Note - Detailed Date of Procedure 01/02/23 Pre-op Diagnosis retained products of conception Post-op Diagnosis Same Procedure Performed Suction D&C Surgeon Pham Hernadez MD Anesthesia MAC Indications missed Findings normal-appearing vulva vagina and cervix to. Moderate amount of products conception within the uterus. 8 cm uterus Description of Procedure the patient was taken the operating room. She was prepped and draped in dorsal lithotomy position after induction of mac anesthesia. A speculum was placed in the vagina. Cervix grasped with tenaculum. The cervix was dilated to about 1 cm Using Sidhu dilators. A 8. [place] curved curette was used to perform suction D&C. The curette was introduced and vacuum was applied. The curette was removed over all surfaces of the intrauterine cavity multiple times. This was done until all the surfaces were clear and had the familiar grainy texture they can be felt through the instrument. A sharp curette was then used to curettage all the surfaces. The suction cup was then reapplied 1 more time to remove any debris. The instruments were removed. The speculum and tenaculum were removed. The patient tolerated the procedure well. She was taken recovery room stable condition. Estimated Blood Loss 50 Drains No Packing No Pathology Yes Complications No immediate complications Condition Stable Disposition PACU
[2023-01-02 12:35] VITALS: BP 88/42; PULSE 55; RESP 16; O2SAT 92
[2023-01-02 13:00] VITALS: BP 96/60; PULSE 49; RESP 16; O2SAT 98
[2023-01-02 13:30] VITALS: BP 106/62; PULSE 49; RESP 16
--- NOTE | 2023-01-02 13:46 | SUR.PHASEII ---
1345: Spoke with Dr. Hernadez. Patient has O neg blood type. Patient and Patient's confirmed that patient received Rhogam in ED on 12-25-2022. Confirmed this with blood bank documentation. No Rhogam to be administered per Dr. Hernadez.
[2023-01-02 13:56] VITALS: BP 109/60; PULSE 50
== END 2023-01-02 14:00 | disposition home or self-care (01) ==
PROVIDERS: PCP Family Medicine; Visit Provider Obstetrics & Gynecology
PROC: (CPT 59812; principal; 2023-01-02 12:00)
DX: O03.4 Incomplete spontaneous abortion without complication (principal)
CPT/HCPCS: 59812; 88305; A9270; J2250; J2704; J3010; J7120

== ENCOUNTER 2023-05-23 08:57 | Outpatient (CLI) | payer BC, SELFPAY ==
--- NOTE | ~2023-05-23 | XR_ITS ---
XR foot LT min 3V DATE: 05/23/2023 09:33 INDICATION: Bilateral foot pain TECHNIQUE: 4 views COMPARISON: None FINDINGS: No fracture or dislocation, periosteal reaction or bone destruction is detected. Joint spac es are preserved. No erosive changes are noted. No calcaneal enthesopathy. IMPRESSION: Negative Reviewed, dictated and finalized at location [facility]. [facility] IMPRESSION: Negative
--- NOTE | ~2023-05-23 | XR_ITS ---
Right foot Technique: AP, oblique, and lateral views were obtained. Clinical History: Pain Findings: No acute fracture or dislocation is seen. Osseous alignment is anatomic. Joint spaces are p reserved without erosive or degenerative change. Soft tissues are unremarkable. Impression: Unremarkable right foot radiographs. Reviewed, dictated and finalized at [facility]. P MAKER Impression: Unremarkable right foot radiographs.
== END 2023-05-23 08:58 ==
PROVIDERS: PCP Family Medicine; Visit Provider Family Medicine
DX: M79.671 Pain in right foot (principal); M79.672 Pain in left foot
CPT/HCPCS: 73630

== ENCOUNTER 2025-02-12 08:29 | Emergency (ER) | payer OTHER, SELFPAY ==
--- NOTE | ~2025-02-12 | XR_ITS ---
Examination: XR chest 2V Clinical History: cough, chest pressure Comparison: 04/28/2020 Technique: PA and Lateral Findings: Cardiomediastinal silhouette normal size and configuration. Lungs clear. No acute bony abnormality. IMPRESSION: 1. No acute cardiopulmonary findings. Reviewed, dictated and finalized at location R.
--- NOTE | 2025-02-12 08:31 | ECG_ITS ---
Test Date: 2025-02-12 08:44:11 Measurements Intervals [place] Rate: 72 P: 33 [place]: 148 QRS: 23 QRSD: 97 T: 39 QT: 379 QTc: 416 Interpretive Statements SINUS RHYTHM DELAYED PRECORDIAL R/S TRANSITION BASELINE ARTIFACT- II, III, AVF BORDERLINE ECG No previous ECG available for comparison Electronically Signed On 02-12-2025 10:46:03 CDT by Woody Wood D.O.
--- NOTE | 2025-02-12 08:40 | ED.CHESTPAIN ---
HPI - Chest Pain General Chief Complaint: Arrhythmia/Palpitations Stated Complaint: flu? palpitations Time Seen by Provider: 02/12/25 08:35 History of Present Illness HPI narrative: Patient with history of anxiety with panic attacks presents here with a sensation of chest tightness and shortness of breath, she has been dealing with a cough for the last week or so, started having sore throat yesterday, and this morning was feeling sensation of chest pressure and difficulty breathing so came in, unsure if this may be a panic attack Related Data Home Medications ?Medication ?Instructions ?Recorded ?Confirmed ?Last Taken ?Type escitalopram oxalate 10 mg tablet 10 mg PO DAILY 07/25/20 01/02/23 01/02/23 06:00 History ferrous sulfate 325 mg (65 mg 325 mg PO DAILY 08/08/21 12/31/22 08/24/21 06:00 History iron) tablet vit no.95-ferrous 1 tablet PO DAILY 08/17/21 12/31/22 08/24/21 06:00 History fumarate 28 mg-folic acid 800 mcg tablet () Allergies Allergy/AdvReac Type Severity Reaction Status Date / Time [place] And Derivatives AdvReac Mild Ulcers Verified 02/12/25 08:50 Review of Systems Review of Systems: All systems reviewed & are unremarkable except as noted in HPI and below PMFSH Past Medical History Medical History GDM, class A1 Surgical History Surgical History History of Family History Family History Grandparent Diabetes mellitus Social History Social History Smoking status: Never smoker Alcohol intake: current Drinks per week: 2 Alcohol use details: RARE WHEN NOT Substance use: never Substance use type: does not use Living arrangements: with family Gender identity (if verbalized by the patient): Female Spiritual care concerns: No Exam Narrative: EXAMINATION OF ORGAN SYSTEMS/BODY AREAS: Constitutional: Vital signs per nursing GENERAL: Appears slightly anxious HEAD: Normal with no signs of head trauma. EYES: EOMI, conjunctiva normal ENT: Hearing grossly intact, some tonsillar swelling and redness with normal voice and no trismus LUNGS: Nonlabored breathing. Foot auscultation bilaterally HEART: [Regular rate and rhythm] ABD: [Soft], [nontender to palpation] EXT: Normal range of motion, no lower extremity swelling or tenderness SKIN: [No rashes or lesions.] NEURO: [Alert. No gross focal sensory or strength deficits.] PSYCH: Slightly anxious affect Course Vital Signs Vital signs: Vital Signs Temperature 97.7 F 02/12/25 08:51 Pulse Rate 76 02/12/25 08:51 Respiratory Rate 16 02/12/25 08:51 Blood Pressure 141/88 H 02/12/25 08:51 Pulse Oximetry 99 02/12/25 08:51 Oxygen Delivery Room Air 02/12/25 08:51 Temperature 97.7 F 02/12/25 08:51 Pulse Rate 70 02/12/25 10:01 Respiratory Rate 20 02/12/25 10:01 Blood Pressure 125/81 02/12/25 10:01 Pulse Oximetry 100 02/12/25 10:01 Oxygen Delivery Room Air 02/12/25 08:51 MDM - Chest Pain MDM Narrative Medical decision making narrative: Patient with history of anxiety/panic attacks presenting here with flu-like symptoms for last few days, but today started having some chest tightness and shortness of breath, unsure it panic attack something worse. On exam patient is slightly anxious appearing but otherwise lungs are clear, nontoxic appearing. I will obtain EKG and chest xray to rule out arrhythmia/ischemia, pneumothorax, or other cause of chest discomfort/shortness of breath. Chest x-ray on my independent interpretation does not show any acute abnormality, no pneumothorax or consolidation. EKG - 12-Lead: Performed at [0100]. Interpreted by me. [Sinus rhythm]. Rate [75]. [Normal] axis. PA-interval [normal]. QRS duration [normal]. QTc [normal]. [No ST segment elevation or depression]. [T-wave normal]. Impression: No EKG evidence of acute ischemia or dysrhythmia. On reevaluation patient is feeling better, resting comfortably, vital signs now stable. I do feel patient is stable for discharge home at this time with followup to their doctor, and return here if symptoms return or worsen. Agreeable to outpatient management. Lab Data Labs: Lab Results 02/12/25 Range/Units 08:47 Influenza A (RT-PCR) Negative (Negative) Influenza B (RT-PCR) Negative (Negative) RSV (RT-PCR) Negative (Negative) SARS-CoV-2 RNA (RT-PCR) Negative (Negative) Group A Strep (PCR) Not detected (Negative) Discharge Plan Discharge Clinical Impression: Anxiety, URI (upper respiratory infection) Patient Disposition: Home Condition: Stable Instructions: Viral Syndrome (ED), Anxiety (ED) Additional Instructions: Please follow up with your doctor; you can always return for any further issues. Patient Language: [place] Prescriptions: New fluticasone propionate [Allergy Relief (fluticasone)] 50 mcg/actuation spray,suspension 1 spray intranasal DAILY Qty: 16 0RF Rx Instructions: administer into each nostril hydroxyzine HCl 25 mg tablet 25 mg PO TID PRN (Reason: anxiety) Qty: 20 0RF No Action escitalopram oxalate 10 mg tablet 10 mg PO DAILY PNV no.95-ferrous fumarate-FA [] 28 mg iron- 800 mcg Tablet 1 tablet PO DAILY ferrous sulfate 325 mg (65 mg iron) Tablet 325 mg PO DAILY Follow-up/Referrals: Capo Herr MD [Primary Care Provider, Family Practice]
[2025-02-12 08:51] VITALS: BP 141/88; PULSE 76; RESP 16; TEMP 36.5; O2SAT 99
[2025-02-12] MEDS: LORazepam (*CRX) 1 MG TABLET PO (08:51)
[2025-02-12 08:57] VITALS: PULSE 73
--- OUTSIDE RECORDS SUMMARY | 2025-02-12 09:13 | XMS_ITS | Data Portability ---
Author Organization [facility] [place] Address [address] [place] [address] [place] [address] Care Team Providers Care Poker Machine Attendant Name Role Phone THELMA VILLELA Primary Care Provider Assessment No assessment recorded. Plan of Treatment Reminders Order Date Submit Date Provider Last Modified By Organization Details Last Modified Time Details Appointments None recorded. Lab unlisted lab - [facility] swab, LEIA [address] [facility] (Lab), [address], [place], [address], 5 15:52:22 urinalysis, dipstick 2024 025 [email or web address] [place], [address], [place], [address], 5 12:23:40 test, urine 2022 [email or web address], [address], [place], [address], 3 12:20:[address] [facility] (Lab), [address], [place], [address], 3 02:47:24 Referral None recorded. Procedures None recorded. Surgeries suction dilation & curettage (SURG) 2022 023 [facility], [address], [place], [address], 13:47:12 Imaging US, obstetric, transvagina l 2022 023 [email or web address] [place], [address], [address], [place], [address], 13:14:00 Medication Orders fluconazole 150 mg tablet 2024 025 [id number], [address], [place], [address], 5 12:26:05 nystatin-tr iamcinolone 100,000 unit/gram-0 .1 % topical ointment 2024 025 [id number], [address], [place], [address], 5 12:26:05 Patient TargetsNo targets recorded. Patient InstructionsNo instructions recorded. Reason for Referral None Reported. Results Created Date Observation Date Name Description Value Unit Range Abnormal Flag Note LastModifiedBy Organization Detail LastModifiedTime 01/01/2012/31/2022 CBC (HEMO GRAM) WBC 8.6 10'3/ uL 3.6-10 .2 Not Available [facility] (Lab) [address], [place], [address], 01/01/2023 02:47:22 01/01/2012/31/2022 CBC (HEMO GRAM) RBC 3.83 10'6/ uL (based on docume nted legal sex) 4.10-5 .30 low Not Available [facility] (Lab) [address], [place], [address], 01/01/2023 02:47:22 01/01/20 23 12/31/2022 CBC (HEMO GRAM) HGB 10.9 g/dL (based on docume nted legal sex) 11.9-1 5.8 low Not Available [facility] (Lab) [address], [place], [address], 01/01/2023 02:47:22 01/01/20 23 12/31/2022 CBC (HEMO GRAM) HCT 34.5 % (based on docume nted legal sex) 37.4-4 8.3 low Not Available [facility] (Lab) [address], [place], [address], 01/01/2023 02:47:22 01/01/20 23 12/31/2022 CBC (HEMO GRAM) MCV 90.1 fL 82.0-9 9.0 Not Available [facility] (Lab) [address], [place], [address], 01/01/2023 02:47:22 01/01/20 23 12/31/2022 CBC (HEMO GRAM) MCH 28.5 pg 27.0-3 3.0 Not Available [facility] (Lab) [address], [place], [address], 01/01/2023 02:47:22 01/01/20 23 12/31/2022 CBC (HEMO GRAM) MCHC 31.6 g/dL 32.0-3 6.0 low Not Available [facility] (Lab) [address] [place], [address], 01/01/2023 02:47:22 01/01/20 23 12/31/2022 CBC (HEMO GRAM) RDW 13.6 % 11.0-1 5.0 Not Available [facility] (Lab) [address] [place], [address], 01/01/2023 02:47:22 01/01/20 23 12/31/2022 CBC (HEMO GRAM) plt 339 10'3/ uL 150-45 0 Not Available [facility] (Lab) [address] [place], [address], 01/01/2023 02:47:22 01/01/20 23 12/31/2022 CBC (HEMO GRAM) MPV 9.7 fL 9.8-12 .7 low Not Available [facility] (Lab) [address], [place], [address], 01/01/2023 02:47:22 01/01/20 23 12/31/2022 CBC (HEMO GRAM) NRBC's 0.0 % 0 Not Available [facility] (Lab) [address], [place], [address], 01/01/2023 02:47:22 01/01/20 23 12/31/2022 CBC (HEMO GRAM) absolute NRBCs 0.0 10'3/ uL 0 2022 1:43 AM: P indic ates parti al resul ts on a panel have been relea sed. Addit ional resul ts will follo w. 2022 1:44 AM: This resul t has been final verif ied. No addit ional or najera ed resul ts are expec nikolay. Not Available [facility] (Lab) [address], [place], [address], 01/01/2023 02:47:22 01/11/20 23 01/10/2023 pregn greg test, urine HCG negati ve Not Available [place] [address], [place], [address], 01/10/2023 12:19:23 06/17/1906/17/2024 [facility] SWAB, LEIA bacterial vaginosis (bv), tma Negati ve negati ve This test detec ts ribos omal RNA from bacte geraldine assoc iated with bacte rial vagin osis (BV), inclu ding Lacto bacil chad (L. gasse ri, L. crisp atus and L. jense michele), Gardn erell a vagin jacinto, and Atopo bium vagin ae by Trans cript ion-M ediat ed Ampli ficat ion (TMA) . A singl e quali tativ e resul t is repor nikolay based on instr ument softw are to deter mine BV posit karli or negat karli statu s. Not Available [facility] (Lab) [address], [place], [address], 06/18/2024 15:52:22 06/17/19 25 06/17/2024 WOMEN 'S HEALT H SWAB, LEIA reta species, tma Negati ve negati ve Not Available [facility] (Lab) [address], [place], [address], 06/18/2024 15:52:22 06/17/19 25 06/17/2024 WOMEN 'S HEALT H SWAB, LEIA reta glabrata, tma Negati ve negati ve Not Available [facility] (Lab) [address], [place], [address], 06/18/2024 15:52:22 06/17/19 25 06/17/2024 WOMEN 'S HEALT H SWAB, LEIA trichomonas vaginalis, tma Negati ve negati ve This assay tests for and diffe renti ates melinda en Shagufta da glabr martha, the [employer] da speci es group (C. albic ans, C. tropi calis , C. parap yusuf is, C. dubli niens is), and Trich omona s vagin jacinto by Trans cript ion-M ediat ed Ampli ficat ion (TMA) . Not Available [facility] (Lab) [address], [place], [address], 06/18/2024 15:52:22 06/17/19 25 06/17/2024 urina lysis , dipst ick Leukocytes + Not Available Sandro [facility] [address], [place], [address], 06/17/2024 12:19:53 06/17/19 25 06/17/2024 urina lysis , dipst ick Nitrite - Not Available [address], [place], [address], 06/17/2024 12:19:53 06/17/19 25 06/17/2024 urina lysis , dipst ick Urobilinogen - Not Available [facility] [address], [place], [address], 06/17/2024 12:19:53 06/17/19 25 06/17/2024 urina lysis , dipst ick Protein trace Not Available [place] [address], [place], [address], 06/17/2024 12:19:53 06/17/19 25 06/17/2024 urina lysis , dipst ick pH 5 Not Available [place] [address], [place], [address], 06/17/2024 12:19:53 06/17/19 25 06/17/2024 urina lysis , dipst ick Blood ++ Not Available [place] [address], [place], [address], 06/17/2024 12:19:53 06/17/19 25 06/17/2024 urina lysis , dipst ick Specific [place] 1.005 Not Available [facility] [address], [place], [address], 06/17/2024 12:19:53 06/17/19 25 06/17/2024 urina lysis , dipst ick Ketone - Not Available [place] [address], [place], [address], 06/17/2024 12:19:53 06/17/19 25 06/17/2024 urina lysis , dipst ick Bilirubin - Not Available [facility] [address], [place], [address], 06/17/2024 12:19:53 06/17/19 25 06/17/2024 urina lysis , dipst ick Glucose - Not Available [place] [address], [place], [address], 06/17/2024 12:19:53 06/17/19 25 06/17/2024 urina lysis , dipst ick Appearance clear Not Available [facility] [address], [place], [address], 06/17/2024 12:19:53 06/17/19 25 06/17/2024 urina lysis , dipst ick Color yellow Not Available [place] [address], [place], [address], 06/17/2024 12:19:53 12/25/19 23 12/24/2022 US, obste tric, trans vagin al No observ ation record ed. [email or web address] [place] [address], [place], [address], 12/24/2022 18:19:29 12/25/19 23 12/24/2022 US, obste tric, trans vagin al No observ ation record ed. JOSSUE [address], [place], [address], 12/29/2022 09:17:07 01/01/2012/31/2022 US, obste tric, follo w-up No observ ation record ed. [email or web address] [address], [place], [address], 01/01/2023 09:44:20 01/01/2012/31/2022 US, obste tric, trans vagin al No observ ation record ed. [email or web address] [place] [address], [place], [address], 12/31/2022 13:01:02 Result Notes None recorded. Problems Name Problem SNOMED Code Status Onset Date Resolution Date Notes Provider Name and Address Organization Details Recorded Time Anxiety 14498271 Completed Escitalo pram Breana Neffh l null, [facility] 2 13:42:27 Obesity 692754462 Completed antenata l testing at 37 wks due to BMI [facility] 13:42:27 Thromboc ytopenic disorder 151885435 Completed history of in [facility] d- plt 288 Breana Uribe l [facility] 2 13:42:28 RhD negative 549774356 Completed rhogam administ ered 01/24 & again on 06/16 [address] l [facility] 2 13:42:28 Dilatati on of renal pelvis Completed bilatera l. repeat 4 weeks. RESOLVED Breana Janaetieh l [facility] 13:42:27 Dilatati on of renal pelvis Active bilatera l. repeat 4 weeks. RESOLVED Breana Cardosotieh l null, [facility] 2 13:42:27 RhD negative 005214893 Active rhogam administ ered 01/24 & again on 06/16 Breana Cardosotieh l null, [facility] 2 13:42:28 Anxiety 95010656 Active Escitalo pram Breana Neffh l [facility] 2 13:42:27 Obesity 805309545 Active antenata l testing at 37 wks due to BMI Breana Cardosotieh l null, [facility] 2 13:42:28 Large for gestatio n age fetus 142080535 Completed 37 wk growth 4/19 Breana marcelino null, [facility] 2 13:42:28 Anemia 680042957 Completed slowfe daily Breana marcelino null, [facility] 2 13:42:27 Pregnanc y 21030635 Completed 202009/11/2021 Breana Uribe l null, [facility] 2 13:42:36 Gestatio nal diabetes mellitus class A1 05754473 Active 2021 BS's QID, Antenata l testing Breana Uribe l null, [facility] 2 13:42:27 Gestatio nal diabetes mellitus class A1 99956319 Completed 2021 BS's QID, Antenata l testing Breana Uribe l null, [facility] 2 13:42:27 Breech presenta tion 1787227 Completed 2021 Breana marcelino null, [facility] 2 13:42:28 Breech presenta tion 8627261 Active 2021 Breana Uribe l null, [facility] 2 13:42:28 Poikiloc ytosis 931103178 Active 2021 Breana Uribe l null, [facility] 2 13:42:28 Poikiloc ytosis 311597717 Completed 2021 Breana Uribe l null, [facility] 2 13:42:28 COVID-19 954894588 Completed 2021 Baby ASA Breana Uribe l null, [facility] 2 13:42:27 Acute posthemo rrhagic anemia 695677037 Active 2021 Vidhya Elliott MD [address], [place], [address], [facility] 17:32:36 Problem Notes None recorded. Procedures Surgical History Date Name Laterality Status Provider Name and Address Organization Details Recorded Time 01/03/20 23 SUCTION DILATION & CURETTAGE (SURG) [facility] 01/03/2023 11:09:04 08/25/19 22 SECTION (SURG) completed [facility] 08/27/2021 10:38:52 01/24/20 21 Date of Last Pap Smear completed Arely Perez [facility] 04/18/2021 16:34:01 02/04/20 20 completed Nancygilbert Lewis [facility] 01/23/2021 16:34:31 02/04/20 20 Date of Last Colonoscopy completed [facility] 01/23/2021 16:34:31 12/13/19 20 Nexplanon Removal completed Roxie Subramanian CNM [address], [place], [address], [facility] 12/13/2019 10:40:53 04/21/19 15 Oral surgery procedure completed Arely Perez [facility] 12/13/2019 10:18:12 Imaging Results None recorded. Procedure Notes None recorded. Medical Equipment None Reported. Allergies No known drug allergies Medications Name Sig Start Date Stop Date Status Note LastModified by Organization Details LastModified Time doxycycli ne hyclate 100 mg capsule TAKE 1 CAPSULE BY MOUTH TWICE A DAY FOR 10 DAYS 06/17 completed Not Available Not Available Not Available cetirizin e 10 mg tablet TAKE 1 TABLET BY MOUTH EVERY DAY 01/22 completed Not Available Not Available Not Available fluconazo le 150 mg tablet TAKE ONE TABLET BY ORAL ROUTE NOW AND AGAIN IN 48 HOURS active Not Available Not Available No t Available benzonata te 200 mg capsule TAKE 1 CAPSULE BY MOUTH THREE TIMES A DAY FOR 10 DAYS 06/17 completed Not Available Not Available Not Available hydrocodo ne 5 mg-acetam inophen 325 mg tablet TAKE 1 TABLET BY MOUTH EVERY 4 TO 5 HOURS NEEDED FOR MODERATE PAIN 09/24 completed Not Available Not Available Not Available metronida zole 0.75 % (37.5 mg/5 gram) vaginal gel Insert 1 applicat orful every day by vaginal route at bedtime for 5 days. 03/05 completed Not Available Not Available Not Available prednison e 20 mg tablet TAKE BY MOUTH 3TABLETS DAILY FOR 3 DAYS THEN 2 DAILY FOR 2 DAYS THEN 1 DAILY FOR 2 DAYS 06/17 completed Not Available Not Available Not Available terconazo le 0.8 % vaginal cream Insert 1 applicat orful every day by vaginal route. 03/05 completed Not Available Not Available Not Available nystatin- triamcino lone 100,000 unit/gram -0.1 % topical ointment APPLY TO AFFECTED AREA TWICE A DAY active Not Available Not Available No t Available docusate sodium 100 mg capsule TAKE 1 CAPSULE BY MOUTH TWICE A DAY NEEDED FOR CONSTIPA TION 09/24 completed Not Available Not Available Not Available ergocalci ferol (vitamin D2) 1,250 mcg (50,000 unit) capsule TAKE 1 CAPSULE BY MOUTH WEEKLY 03/19 completed Not Available Not Available Not Available ibuprofen 600 mg tablet TAKE 1 TABLET BY MOUTH EVERY 6 HOURS NEEDED FOR CRAMPING 01/30 completed Not Available Not Available Not Available albuterol sulfate HFA 90 mcg/actua tion aerosol inhaler INHALE 2 PUFFS BY MOUTH EVERY 4 HOURS FOR 15 DAYS 06/17 completed Not Available Not Available Not Available escitalop jarret 10 mg tablet TAKE 1 TABLET BY MOUTH EVERY DAY active Not Available Not Available No t Available nitrofura ntoin monohydra te/macroc rystals 100 mg capsule Take 1 capsule every 12 hours by oral route as directed for 5 days. 03/05 completed Not Available Not Available Not Available 06/17 completed Not Available Not Available Not Available Nexplanon 68 mg subdermal implant Inject by subcutan eous route. 01/22 completed 10/2019 Not Available Not Available Not Available COVID-19 test specimen collectio n TEST DIRECTED 01/22 completed Not Available Not Available Not Available BinaxNOW COVID-19 Ag Self Test kit FOLLOW INSTRUCT IONS INCLUDED WITH THE PACKAGE. 06/17 completed Not Available Not Available Not Available Wegovy 1 mg/0.5 mL subcutane ous pen injector INJECT 1 ML (0.5ML) SUBCUTAN EOUSLY ONCE WEEKLY ON SAME DAY EACH WEEK 06/17 completed Not Available Not Available Not Available Wegovy 0.5 mg/0.5 mL subcutane ous pen injector INJECT 0.5MG UNDER THE SKIN ONCE WEEKLY ON SAME DAY EACH WEEK FOR WEEKS 5-12 06/17 completed Not Available Not Available Not Available Vitals Date Recorded Body height Body mass index (BMI) Body weight Systolic And Diastolic Provider Name and Address Organization Details Last Updated DateTime 06/17/2024 167.64 cm 42.8 kg/m2 444290.7 g 122/77 mm[Hg] [facility] 06/17/2024 12:09:27 Date Recorded Body height Body mass index (BMI) Body weight Systolic And Diastolic Provider Name and Address Organization Details Last Updated DateTime 12/31/2022 167.64 cm 43.6 kg/m2 591216.94 g 100/65 mm[Hg] [facility] 12/31/2022 10:50:23 Date Recorded Body height Body mass index (BMI) Body weight Systolic And Diastolic Provider Name and Address Organization Details Last Updated DateTime 01/10/2023 167.64 cm 43.9 kg/m2 824101.12 g 112/73 mm[Hg] [facility] 01/10/2023 12:15:40 Social History Question Answer Notes LastModified by Organizat ion Details LastModified Time Tobacco Smoking Status Never Smoker [facility] 06/12/2021 16:52:23 Do You Have An Advance Directive? No [email or web address] Information n ot available 01/23/2021 How Many Years Have You Consumed Alcohol? 10 [email or web address] Information not available 01/23/2021 Are You Blind Or Do You Have Difficulty Seeing? No [email or web address] Information n ot available 01/23/2021 What Is Your Level Of Caffeine Consumption? Moderate [email or web address] Information not available 01/23/2021 How Much Tobacco Do You Chew? None [email or web address] Information not available 01/23/2021 In The 14 Days Before Symptom Onset, Have You Had Close Contact With A Laboratory-confirm ed COVID-19 While That Case Was Ill? No [email or web address] Information n ot available 01/23/2021 In The 14 Days Before Symptom Onset, Have You Had Close Contact With A Person Who Is Under Investigation For COVID-19 While That Person Was Ill? No [email or web address] Information not available 01/23/2021 Have You Been To An Area Known To Be High Risk For COVID-19? No [email or web address] Information not available 01/23/2021 Are You Deaf Or Do You Have Serious Difficulty Hearing? No [email or web address] Information not available 01/23/2021 What Type Of Diet Are You Following? REGULAR Information n ot available 01/23/2021 What Is The Highest Grade Or Level Of School You Have Completed Or The Highest Degree You Have Received? [id number] [email or web address] Information not available 01/23/2021 Are There Any Guns Present In Your Home? No [email or web address] Information not available 01/23/2021 What Was The Date Of Your Most Recent Tobacco Screening? 03/06/2021 [email or web address] Information not available 06/12/2021 Do You Use Protection During Sex? No [email or web address] Information not available 01/23/2021 Do You Use Your Seat Belt Or Car Seat Routinely? Yes [email or web address] Information not available 01/23/2021 Do You Have Smoke And Carbon Monoxide Detectors In Your Home? Yes [email or web address] Information not available 01/23/2021 How Much Tobacco Do You Smoke? No [email or web address] Information not available 12/13/2019 Do You Use Sunscreen Routinely? Yes [email or web address] Information not available 01/23/2021 Have You Used IV Drugs? No [email or web address] Information not available 01/23/2021 Sex: Unknown Functional Status Question Answer Note LastModified by Organizat ion Details LastModified Time Do you use any illicit or recreational drugs? No [email or web address] Information not available 01/23/2021 What is your level of alcohol consumption? None Information not available 02/19/2021 Do you or have you ever used smokeless tobacco? Never used smokeless tobacco [email or web address] Information not available 06/12/2021 Are you able to walk independently without assistance or assistive devices? YESWOREST [email or web address] Information not available 01/23/2021 What is your occupation? [employer] [email or web address] Information not available 01/23/2021 Do you or have you ever used e-cigarettes or vape? Never used electronic cigarettes Information not available 06/12/2021 What is your exercise level? Moderate Information not available 02/19/2021 Mental Status Question Answer Note LastModified by Organization D etails LastModified Time Do you feel stressed (tense, restless, nervous, or anxious, or unable to sleep at night)? [id number] [email or web address] Information not available 01/23/2021 Family History Relationship Description Onset Age of this Age Resolved Age Notes LastModified by Organization Details LastModified Time Maternal Grandmother Malignant neoplasm of breast 65 [email or web address] Not available 2024 12:23:52 Paternal Grandfather Diabetes mellitus [email or web address] Not available 03/06 09:45:52 Medical History Condition Response Allergies (Food, seasonal, environmental ) N Other N Blood Transfusion N Breast Cancer N Drug/Latex Allergies/Reactions N Dermatologic Disorders N Lung Disease N Defects or Inherited Disease N Breast Problem N Gestational Diabetes N Hematologic disorders N Anesthesia Complications N History of STI N Deep Vein Thrombosis N Polycystic ovary syndrome N Anxiety Disorder N Autoimmune disease N Arthritis N Polyps N Infertility N Acid Reflux (GERD) N History of abnormal pap N Cancer N Varicosities N Stroke N Neurologic/Epilepsy N Endometriosis N High Cholesterol N Fibromyalgia N Headaches N Kidney Disease N Heart Problems N Thyroid Problems N Kidney or Bladder Problems N GI Problems N Eating Disorder N Anemia N Art (IVF or FET) N Psychiatric Illness N Ovarian Cancer N Diabetes N Pulmonary (TB, Asthma) N Hepatitis/Liver Disease N No Past Medical History N Eczema N Urinary Tract Infection N Abuse/Domestic Violence N Asthma N Trauma/Violence N Depression/ depression N Heart Disease N Pre-Eclampsia N Hypertension N Osteoporosis N Thrombophilias N Gynecological History Statement/Question Response Flow Moderate Date of LMP 05/31/2024 N Was last menstrual period normal Y STIs/STDs N Date of control 11/08/2019 Date of Last Colonoscopy 02/04/2020 Desired Control Method Withdrawal Abnormal Pap N On BCP's at Conception? N HPV Vaccine N Duration of Flow (days) 5 Current Control Method None Are cycles usually normal Y Frequency of Cycle (Q days) 27 Sexually Active? Y Menses Monthly Y Age of first menstrual cycle 8 Date of Last Pap Smear 01/23/2021 Sexual Problems? N LMP Approximate 02/04/2020 N Obstetrics History GPAL:G 1 P 1 0 0 1 Type Value Full Term 1 Living 1 Total 1 Immunizations Vaccine Type Date Status Note Provider Nam e and Address Organization Details Recorded Time Tdap 06/19/2021 completed Kelsy brand [facility] 01/10/2023 12:15:47 COVID-19, mRNA, LNP-S, PF, 30 mcg/0.3 mL dose, osbaldo-sucrose 07/26/2021 completed Kelsy brand [facility] 01/10/2023 12:15:47 Past Encounters Encounter ID Performer Location Encounter Start Date Encounter Closed Date Diagnosis/Indication Diagnosis SNOMED-CT Code Diagnosis ICD10 Code Diagnosis IMO Codes Diagnosis Note [id number] Roxie Subramanian [facility] [address] [address] 12/13/2019 09:57:39 12/13/2019 10:50:36 Gynecologic examination 61689297 Z01.419 Contracept ion care management 578713671 Z30.9 [id number] [facility] [address] [address] 01/23/2021 15:58:00 01/25/2021 10:43:11 Gynecologic examination 64368187 Z01.419 Z11.51 test positive 908321131 Z32.01 Risk factors addressed: Tobacco Cessation, Safe Sexual Practices, environmen malini, work hazards, travel restrictio ns, seat belt use.Eat a health well balanced diet, avoid alcohol, tobacco, and street drugs.Enga ge in daily low impact exercise, avoid temperatur e extremes, and cat, rodent, and bird feces.Avoi d travel to areas where zika virus is a concern.Of fered cf/sma/nip t. Handouts given and discussed with patient.Ch ildbirth classes recommende d.New OB sheet given.If previous , counseling . B6 and unisom for nausea. Pt verbalizes that she understand s the importance of above instructio ns.All questions were answered.P atient reminded to have annual well woman examinatio n and address [facility] . [id number] Justen Hernadez MD [place] [address],[place] [address] 01/23/2021 15:57:13 01/23/2021 16:31:16 [id number] Justen Hernadez MD [place] [address],[place] [address] 02/06/2021 16:25:50 02/06/2021 17:10:32 Threatened miscarriage [id number] O20.0 [id number] Justen Hernadez MD [place] [address],[place] [address] 02/19/2021 09:26:04 02/19/2021 10:20:35 screening [id number] Z36.82 [id number] Justen Hernadez MD [place] [address],[place] [address] 02/19/2021 09:26:38 02/19/2021 11:29:11 Vaginitis 58210539 N76.0 Routine an tenatal care 842505595 Z34.00 [id number] Roxie Subramanian CNM [place] [address],[place] [address] 02/23/2021 13:47:07 02/23/2021 14:40:21 Urinary symptoms [id number] R39.9 [id number] Roxie Subramanian CNM [place] [address],[place] [address] 03/06/2021 09:39:13 03/06/2021 10:43:55 Candidiasis of vagina 50124094 B37.3 [id number] Arcelia Hayden [facility] [address],[place] [address] 03/19/2021 17:14:14 03/19/2021 18:09:23 Routine care [id number] Z34.92 [id number] Roxie Subramanian [facility] [address],[place] [address] 04/18/2021 16:26:49 04/20/2021 19:10:45 Routine care [id number] Z34.80 [id number] Justen Hernadez MD [place] [address],[place] [address] 04/18/2021 16:25:57 04/19/2021 09:49:08 screening for malformation 462113861 Z36.3 [id number] Vidhya Elliott MD [place] [address],[place] [address] 05/15/2021 14:52:51 05/15/2021 16:09:57 screening [id number] Z36.2 [id number] Vidhya Elliott MD [place] [address],[place] [address] 05/15/2021 14:56:07 05/15/2021 16:33:14 Dilatation of renal pelvis 762781564 N13.39 Routine an tenatal care 746865738 Z34.02 RhD negative 089671740 Z 01.83 [id number] Vidhya Elliott MD [place] [address],[place] [address] 06/12/2021 16:51:37 06/12/2021 17:33:59 condition affecting obstetrical care of mother 702521552 O35.8XX0 Z3A.28 [id number] Vidhya Elliott MD [place] [address],[place] [address] 06/12/2021 16:52:13 06/12/2021 18:14:38 Routine care [id number] Z34.02 [id number] Vidhya Elliott MD [place] [address],[place] [address] 06/26/2021 17:17:05 06/27/2021 13:20:02 Routine care 836966252 Z34.02 Glucose to lerance test outside reference range 436742611 R73.09 [id number] Justen Hernadez MD [place] [address],[place] [address] 07/05/2021 15:58:06 07/05/2021 17:12:16 Gestational diabetes mellitus class A1 48531127 O24.410 [id number] Justen Hernadez MD [place] [address],[place] [address] 07/05/2021 15:58:53 07/05/2021 17:18:31 Gestational diabetes mellitus class A1 46126217 O24.410 Informed pt of results, explained in depth what the high levels mean, how her body is not processing the sugars correctly and this does rule her in for GDM. Pt states she has no history of DM, but her is a type 1 diabetic and has a continuous monitor. Spoke with patient about diet changes and how to adjust meals to decrease carbs and increase protein and healthy fats. Advised to continue low sugar, low carb diet, and higher proteins. Reviewed different meal adjustment s and ways to decrease carbs with still getting all of the nutrients she needs. Advised to follow 3 meals a day with snacks in between meals with importance on the bedtime snack. Reviewed nutritiona l label with patient and how to count carbs for each meal. Advised to be conscienti ous of meals and record foods that increase her levels and to avoid those types of foods. Reviewed acceptable drinks for patient and what to avoid. Reviewed pt drinks and to stick with water, with an occasional glass of milk or tea as this is one of the patients likes. Pt states that her normal breakfast is tortilla with eggs, or uzbek yogurt with fruit. Advised to be conscienti ous of fruits and tortillas, these hold a lot of carbs and sugars. Advised to really count carbs and stay within her limits. Look into low carb options for breads and tortillas, stick with proteins, veggies, and cheeses. Pt states she had a ton of rice with a meal and her level was perfectly fine, advised kind of all plays into what type, how healthy, and what shes eaten previously , to really start to portion control these meals. Pt agreeable that it would give her ultimately peace of mind to follow her carbs for these next 8 weeks. Advised to avoid frozen foods and pastas, cook fresh meals and refer to ADA for meal recommenda tions and more informatio n on her diagnosis. Advised to continue checking blood sugars four times daily fasting and 1 hour after breakfast, lunch, and dinner. All supplies called into pharmacy on file, confirmed with patient. Pt states checks are going well, no problems with equipment, and understand s when to check levels. Advised to continue to record all levels and bring to all appointmen ts from here on out to review with MD. Advised will monitor diet controlled and assess the need for insulin administra tion if levels are trending high without the help of diet. Twice weekly NST, serial growth u/s, and weekly OB visits more frequently to monitor mom/baby to ensure healthy and well. PT is already scheduled out and has had first NST, growth is on 07/10 prior to OB appt. Discussed with pt in depth follow up hour PP 6 weeks to evaluate the need for PCP to be involved if levels are high. Advised otherwise, if normal PCP will need to follow yearly/tony ry 2 years to monitor. Discussed risks for baby with this GDM diagnosis and reasons why we manage through diet and testing to monitor more closely. Advised pt if any levels are consistent ly high, or over 170+ to call the office for further assistance and evaluation . Also advised pt if questions arise, or pt needs assistance with GDM diagnosis to call the OB line. All questions answered and explained in depth, no further concerns. [id number] Vidhya Elliott MD [place] [address],[place] [address] 07/10/2021 16:50:38 07/10/2021 17:57:25 Gestational diabetes mellitus class A1 [id number] O24.410 [id number] Vidhya Elliott MD [place] [address] [address] 07/10/2021 16:50:53 07/10/2021 18:39:30 Gestational diabetes mellitus class A1 14932317 O24.410 Z3A.32 [id number] Vidhya Elliott MD [place] [address],[place] [address] 07/10/2021 16:51:15 2021 18:26:54 Gestational diabetes mellitus class A1 62660602 O24.410 Z3A.32 Breech presentation 6096 002 O32.1XX9 [id number] Justen Hernadez MD [place] [address],[place] [address] 07/13/2021 15:56:33 07/13/2021 16:37:55 Gestational diabetes mellitus class A1 04412184 O24.410 [id number] Vidhya Elliott MD [place] [address],[place] [address] 07/17/2021 17:22:32 07/17/2021 18:10:29 Gestational diabetes mellitus class A1 32820087 O24.410 Z3A.32 [id number] MD Padmini Melendez [address],[place] [address] 07/17/2021 17:24:00 07/17/2021 18:10:40 Breech presentation 4528295 O32.1XX9 Gestationa l diabetes mellitus class A1 27558544 O24.410 [id number] Justen Hernadez MD [place] [address],[place] [address] 07/20/2021 15:53:06 07/20/2021 16:45:47 Gestational diabetes mellitus class A1 03347311 O24.410 [id number] Justen Hernadez MD [place] [address],[place] [address] 07/24/2021 15:51:58 07/24/2021 16:57:54 Gestational diabetes mellitus class A1 38493421 O24.410 [id number] MD Padmini Johnson [address],[place] [address] 07/27/2021 15:23:50 07/27/2021 16:33:39 Maternal obesity complicating , childbirth and the puerperium, antepartum 1429338845 07 O99.213 [id number] Justen Hernadez MD [place] [address],[place] [address] 07/27/2021 15:27:33 07/27/2021 16:30:45 Thrombocytopenic disorder 411773495 D69.6 Routine an tenatal care 237495622 Z34.00 [id number] Justen Hernadez MD [place] [address],[place] [address] 07/31/2021 10:54:37 07/31/2021 12:41:03 Gestational diabetes mellitus class A1 54497262 O24.410 [id number] MD Padmini Johnson [address],[place] [address] 07/31/2021 10:55:17 07/31/2021 12:40:32 Thrombocytopenic disorder 916691544 D69.6 Routine an tenatal care 987947421 Z34.00 [id number] Vidhya Elliott MD [place] [address],[place] [address] 08/07/2021 16:53:03 08/07/2021 17:44:09 Gestational diabetes mellitus class A1 22159345 O24.410 [id number] Vidhya Elliott MD [place] [address],[place] [address] 08/07/2021 16:54:44 08/08/2021 11:26:09 Gestational diabetes mellitus class A2 03379721 O24.410 O99.213 Z3A.36 [id number] Vidhya Elliott MD [place] [address],[place] [address] 08/07/2021 16:55:05 08/08/2021 11:26:34 Gestational diabetes mellitus class A1 55396178 O24.410 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.8 [id number] Justne Hernadez MD [place] [address],[place] [address] 08/10/2021 15:31:29 08/10/2021 17:22:46 Gestational diabetes mellitus class A1 71863671 O24.410 [id number] Vidhya Elliott MD [place] [address],[place] [address] 08/21/2021 17:06:14 08/21/2021 17:58:20 Gestational diabetes mellitus class A1 72068087 O24.410 [id number] Vidhya Elliott MD [place] [address],[place] [address] 08/21/2021 17:06:32 08/22/2021 13:01:04 Routine care 814899405 Z34.02 [id number] Vidhya Elliott MD [place] [address],[place] [address] 09/03/2021 17:00:01 09/03/2021 17:33:43 Postoperative visit 674412318 Z09 Acute post hemorrhagic anemia 721640839 D62 [id number] Vidhya Elliott MD [place] [address],[place] [address] 09/24/2021 11:34:37 09/24/2021 13:15:13 Past history of gestational diabetes mellitus 496093832 Z86.32 Acute post hemorrhagic anemia 663430088 D62 [id number] Vidhya Elliott MD [place] [address],[place] [address] 01/30/2022 16:24:36 01/30/2022 17:23:54 Gynecologic examination 33570363 Z01.419 [id number] MD Padmini Melendez [address],[place] [address] 12/24/2022 13:46:24 12/24/2022 15:03:51 Threatened miscarriage 57906298 O20.0 Z3A.01 [id number] MD Padmini Johnson [address],[place] [address] 12/31/2022 09:57:25 12/31/2022 11:13:12 Missed miscarriage 82341469 O02.1 [id number] MD Padmini Johnson [address] [address] 12/31/2022 09:57:46 12/31/2022 13:29:36 Retained products of conception 212831388 O72.2 This patient is a 32-year-ol d female with retained products conception . We have agreed to perform suction D&C. She understand s the risks, benefits, and alternativ es. She has completed informed consent process and is ready to proceed. [id number] Justen Hernadez MD [place] [address],[place] [address] 01/03/2023 11:10:58 01/03/2023 11:13:50 [id number] Justen Hernadez MD [place] [address],[place] [address] 01/10/2023 12:10:34 01/13/2023 11:37:48 Retained products after miscarriage 519027584 O03.4 this patient presents for postop follow-up. She is 1 week postop from a suction D&C. She is recovering normally. Her bleeding is minimal. She has no foul-smell ing vaginal discharge. She denies any nausea, vomiting, fever, chills. We discussed contracept ion. We discussed future . She will follow up for a repeat test. We discussed future . [id number] Justen Hernadez MD [place] [address],[place] [address] 06/17/2024 11:54:40 06/17/2024 12:29:28 Pruritus of vulva 94821117 L29.2 Vaginitis 19810124 N76.0 Discussed empirical treatment with fluconazol e for suspected yeast infection based on reported symptoms and physical exam findings.D iscussed vulvar care guidelines in addition to laundry/sk in irritants to avoid.Vagi nitis panel sent to confirm infection Health Concerns Section Related Observation LastModified by Organization Detai ls LastModified Time None Recorded Concern Status LastModified by Organization Details LastModified Time None Recorded Advance Directives Directive N: Payers Insurance Date Sequence Insurance Name Policy Number Policy Arana Covered Member ID Arana Member ID Guarantor Name 03/05/2021 1 [facility] [id number] Alysa Emanuel Asadorian [id number] Alysa Emanuel Asadorian 12/24/2022 1 [employer] (PPO) [id number] Alysa Emanuel Asadorian [id number] Alysa Emanuel Asadorian 08/27/2021 1 [employer] [id number] Alysa Emanuel Asadorian [id number] Alysa Emanuel Asadorian 05/15/2021 1 [employer] (POS II) [id number] Alysa Emanuel Asadorian [id number] Alysa Emanuel Asadorian 06/16/2024 1 [place] [id number] Alysa Johnrian [id number] Alysa Emanuel Asadorian 06/17/2024 1 [facility] - [employer] [id number] Alysa Johnrian [id number] Alysa Johnriyeni Notes Date Note Type Note Provider Name and Address Organization Details Recorded Time 12/31/2022 text/html This patient is a 32 female who presents for incomplete] discussed the etiology, frequency, natural history, and treatment of this condition. Spent more than 35 minutes talking about the above, as well as, her history, the particular findings of her case, and detail of her the treatment options. We discussed the risk benefits of each option. She understands the risk include infection and hemorrhage. She understands a D&C also holds the risk of injury. She understands that waiting can result in a septic that is even more difficult to treat. We talked about signs and symptoms of infection.we agreed to proceed with suction D&C. She understands these risks. She understands injury occurred when hospitalization, more surgery, and severe pains. She unders Justen Hernadez MD [address], [place], [address], [facility] 12/31/2022 13:15:52 01/10/2023 text/html this patient presents for postop follow-up. She is 1 week postop from a suction D&C. She is recovering normally. Her bleeding is minimal. She has no foul-smelling vaginal discharge. She denies any nausea, vomiting, fever, chills. We discussed contraception. We discussed future . She will follow up for a repeat test. We discussed future . Justen Hernadez MD [address], [place], [address], [facility] 01/11/2023 23:34:48 06/17/2024 text/html Patient here with c/o vaginal itching that has been occurring intermittently for the past 6 monthsTried OTC monistat a few times with temporary relief of symptomsDenies odor, discharge, GI/ sx, pelvic/flank pain CLEOPATRA ALMARAZ NP [address], [place], [address], [facility] 06/17/2024 12:28:09 OBGyn Episode Ob Episode Information Episode Created Date Number of Fetuses Patient Bloodtype Patient rh Status Prepregnancy Weight lbs Domestic Partner Domestic Partner Phone Father Name Marketing Community Liaison Status 02/20/20 21 1 O Negative 225 CLOSED Fetus Data First Name Last Name Admitted to NICU Weight (g) Sex Living Outcome Pediatric Complications Fetus ID Race Codes Race Delivery Type 3515.33 8 F true Full Term [id number] Primary Problems Problem Notes CMP 08/07 AST/ ALT WNL Problem Name Start Date End Date Resolution Snomed Code Not e Anxiety MEDICATION 71007412 Escitalop jarret Anemia 878792040 slowfe suha ly Gestational diabetes mellitus class A1 07/13/2021 91160322 BS's QID, testing COVID-19 08/14/2021 948188339 Baby ASA Obesity 042567718 testing at 37 wks due to BMI Poikilocytosis 08/08/2021 291840494 Breech presentation 07/13/2021 SELFRESOLVED 034204 2 Thrombocytopenic disorder 109201230 history of in childhood- plt 288 RhD negative 432190082 rhogam administered 01/24 & again on 06/16 Dilatation of renal pelvis SELFRESOLVED bilateral. repe at 4 weeks. RESOLVED Large for gestation age fetus SELFRESOLVED 37 wk growth Damien Calculation Initial Damien Date Initial Exam Date Initial Exam Provider Initial Ultrasound Date Last Menstrual Period Date Ultra Sound Weeks Gestation 08/29/2021 02/19/2021 01/23/2021 11/22/2020 8 Eighteen To Twenty Week Damien Update Ultra Sound Date Fundal Height At Umbil Quickening Date Ultra Sound Latest Weeks Gestation Final Damien Confirmed By Final Damien Confirmed Date Final Damien Date Ultra Sound Latest Days Gestation 0 [email or web address] 02/19/2021 08/30/19 22 0 Pre-vinny Flowsheet Flowsheet Date 02/19/2021 Nye Score Blood Edema Fundus Height Fundus Units Glucose Ketones Leukocytes Nitrite Labor Signs Protein Cervic Dilation Cervic Effacement Cervic Station 12 Type Weight in lbs Pre/Post Dialysis Refused Weight 250.528015924782 BP Diastolic BP Location Tested BP Systolic BP Type 79 R arm 119 sitting Fetus Heart Rate Present A 156 Fetus Movement Comments this patient is a 30-year-ol d 1 at 12 weeks gestation who presents for initial care. Her medical history is significant for anxiety and a remote history of thrombocytopenia in childhood. She is vaccinated for COVID and the flu. She is going to get her Tdap shot. We discussed care in detail. The nuchal translucency of the fetus is normal , nasal bone is present. She will begin routine care. She is having NIPT genetic testing and cystic fibrosis/SMA Flowsheet Date 02/23/2021 Nye Score Blood Edema Fundus Height Fundus Units Glucose Ketones Leukocytes Nitrite Labor Signs Protein Cervic Dilation Cervic Effacement Cervic Station Type Weight in lbs Pre/Post Dialysis Refused BP Diastolic BP Location Tested BP Systolic BP Type Fetus Heart Rate Present Fetus Movement Comments Flowsheet Date 03/06/2021 Nye Score Blood Edema Fundus Height Fundus Units Glucose Ketones Leukocytes Nitrite Labor Signs Protein Cervic Dilation Cervic Effacement Cervic Station neg none trace Type Weight in lbs Pre/Post Dialysis Refused Weight 252.007720204630 BP Diastolic BP Location Tested BP Systolic BP Type 80 141 Fetus Heart Rate Present Fetus Movement A Yes Comments OB Problem is here for vagin al infection. Flowsheet Date 03/19/2021 Nye Score Blood Edema Fundus Height Fundus Units Glucose Ketones Leukocytes Nitrite Labor Signs Protein Cervic Dilation Cervic Effacement Cervic Station none Type Weight in lbs Pre/Post Dialysis Refused Weight 254.240267437708 BP Diastolic BP Location Tested BP Systolic BP Type 81 116 Fetus Heart Rate Present A 141 Fetus Movement A No Comments Doing well. Does have some a llergy symptoms which is not uncommon for her. Discussed use of antihistamines. Considering AFP. Will check with insurance. Flowsheet Date 04/18/2021 Nye Score Blood Edema Fundus Height Fundus Units Glucose Ketones Leukocytes Nitrite Labor Signs Protein Cervic Dilation Cervic Effacement Cervic Station Type Weight in lbs Pre/Post Dialysis Refused BP Diastolic BP Location Tested BP Systolic BP Type Fetus Heart Rate Present Fetus Movement Comments Flowsheet Date 04/18/2021 Nye Score Blood Edema Fundus Height Fundus Units Glucose Ketones Leukocytes Nitrite Labor Signs Protein Cervic Dilation Cervic Effacement Cervic Station neg trace trace Type Weight in lbs Pre/Post Dialysis Refused Weight 259.074369201361 BP Diastolic BP Location Tested BP Systolic BP Type 76 123 Fetus Heart Rate Present Fetus Movement A Yes Comments patient is having some disch arge, swelling and nausea when has congestion. reviewed saline nasal spray ok, ok to d/c pelvic rest and precautions reviewed anatomy incomplete f/u 4 weeks reviewed precautions Flowsheet Date 05/15/2021 Nye Score Blood Edema Fundus Height Fundus Units Glucose Ketones Leukocytes Nitrite Labor Signs Protein Cervic Dilation Cervic Effacement Cervic Station Type Weight in lbs Pre/Post Dialysis Refused BP Diastolic BP Location Tested BP Systolic BP Type Fetus Heart Rate Present Fetus Movement Comments Flowsheet Date 05/15/2021 Nye Score Blood Edema Fundus Height Fundus Units Glucose Ketones Leukocytes Nitrite Labor Signs Protein Cervic Dilation Cervic Effacement Cervic Station neg trace 27 none trace Type Weight in lbs Pre/Post Dialysis Refused Weight 265.382701728395 BP Diastolic BP Location Tested BP Systolic BP Type 70 121 Fetus Heart Rate Present Fetus Movement A Yes Comments Doing well. US today complet e and wnl except bilateral pyelectasis and double Any. Discussed, reassured, repeat US 4 weeks. RH neg- Rhogam at 28. Orders given for this and 28w labs. Discussed and encouragaed Tdap after 27w. Flowsheet Date 06/12/2021 Nye Score Blood Edema Fundus Height Fundus Units Glucose Ketones Leukocytes Nitrite Labor Signs Protein Cervic Dilation Cervic Effacement Cervic Station Type Weight in lbs Pre/Post Dialysis Refused BP Diastolic BP Location Tested BP Systolic BP Type Fetus Heart Rate Present Fetus Movement Comments Flowsheet Date 06/12/2021 Nye Score Blood Edema Fundus Height Fundus Units Glucose Ketones Leukocytes Nitrite Labor Signs Protein Cervic Dilation Cervic Effacement Cervic Station neg none none trace Type Weight in lbs Pre/Post Dialysis Refused Weight 268.628906676200 BP Diastolic BP Location Tested BP Systolic BP Type 80 125 Fetus Heart Rate Present A 155 Fetus Movement A Yes Comments Doing ok, some hip pain. Levon l do Tdap. Doing Rhogam and 28w labs this week at . US todya pyelectasis resolved. Grwoth 55%, fibroid stable. Anxiety fine. Flowsheet Date 06/26/2021 Nye Score Blood Edema Fundus Height Fundus Units Glucose Ketones Leukocytes Nitrite Labor Signs Protein Cervic Dilation Cervic Effacement Cervic Station neg trace 33 none trace Type Weight in lbs Pre/Post Dialysis Refused Weight 269.046033961622 BP Diastolic BP Location Tested BP Systolic BP Type 80 120 Fetus Heart Rate Present A 130 Fetus Movement A Yes Comments Doing well. 3hr with one dionna ue high and 3hr low. Started checking sugars yesterday. So far fasting 95, pp 135, 113,135. Will call them in after a week. Tdap is done. Flowsheet Date 07/05/2021 Nye Score Blood Edema Fundus Height Fundus Units Glucose Ketones Leukocytes Nitrite Labor Signs Protein Cervic Dilation Cervic Effacement Cervic Station Type Weight in lbs Pre/Post Dialysis Refused BP Diastolic BP Location Tested BP Systolic BP Type Fetus Heart Rate Present Fetus Movement Comments Flowsheet Date 07/05/2021 Nye Score Blood Edema Fundus Height Fundus Units Glucose Ketones Leukocytes Nitrite Labor Signs Protein Cervic Dilation Cervic Effacement Cervic Station Type Weight in lbs Pre/Post Dialysis Refused BP Diastolic BP Location Tested BP Systolic BP Type Fetus Heart Rate Present Fetus Movement Comments Flowsheet Date 07/10/2021 Nye Score Blood Edema Fundus Height Fundus Units Glucose Ketones Leukocytes Nitrite Labor Signs Protein Cervic Dilation Cervic Effacement Cervic Station Type Weight in lbs Pre/Post Dialysis Refused BP Diastolic BP Location Tested BP Systolic BP Type Fetus Heart Rate Present Fetus Movement Comments Flowsheet Date 07/10/2021 Nye Score Blood Edema Fundus Height Fundus Units Glucose Ketones Leukocytes Nitrite Labor Signs Protein Cervic Dilation Cervic Effacement Cervic Station Type Weight in lbs Pre/Post Dialysis Refused BP Diastolic BP Location Tested BP Systolic BP Type Fetus Heart Rate Present Fetus Movement Comments Flowsheet Date 07/10/2021 Nye Score Blood Edema Fundus Height Fundus Units Glucose Ketones Leukocytes Nitrite Labor Signs Protein Cervic Dilation Cervic Effacement Cervic Station neg trace 36 none trace Type Weight in lbs Pre/Post Dialysis Refused Weight 272.917875705511 BP Diastolic BP Location Tested BP Systolic BP Type 81 124 Fetus Heart Rate Present A 155 Fetus Movement A Yes Comments Doing well. Since diet teach ing, only 1pp elevated. NST reactive. US today EFW 90% with AC 95%, breech. Discussed possible rec for CS. Discussed with LGA baby low chance of success with ECV probably not recommended. Will finalize mode of delivery in next few weeks. Flowsheet Date 07/13/2021 Nye Score Blood Edema Fundus Height Fundus Units Glucose Ketones Leukocytes Nitrite Labor Signs Protein Cervic Dilation Cervic Effacement Cervic Station Type Weight in lbs Pre/Post Dialysis Refused Weight 272.209304051283 BP Diastolic BP Location Tested BP Systolic BP Type 83 128 Fetus Heart Rate Present Fetus Movement Comments Flowsheet Date 07/17/2021 Nye Score Blood Edema Fundus Height Fundus Units Glucose Ketones Leukocytes Nitrite Labor Signs Protein Cervic Dilation Cervic Effacement Cervic Station Type Weight in lbs Pre/Post Dialysis Refused BP Diastolic BP Location Tested BP Systolic BP Type Fetus Heart Rate Present Fetus Movement Comments Flowsheet Date 07/17/2021 Nye Score Blood Edema Fundus Height Fundus Units Glucose Ketones Leukocytes Nitrite Labor Signs Protein Cervic Dilation Cervic Effacement Cervic Station 37 Type Weight in lbs Pre/Post Dialysis Refused BP Diastolic BP Location Tested BP Systolic BP Type Fetus Heart Rate Present A 140 Fetus Movement Comments Doing well. Good FM. SUgars ok, some fastings in low 90s, only a couple pp a little elevated. Thinks baby may have flipped. Given LGA, if remains breech, will not do ECV, she is in agreement. Will schedule CS at 39w and can cancel if vertex. Flowsheet Date 07/20/2021 Nye Score Blood Edema Fundus Height Fundus Units Glucose Ketones Leukocytes Nitrite Labor Signs Protein Cervic Dilation Cervic Effacement Cervic Station Type Weight in lbs Pre/Post Dialysis Refused Weight 272.697530938514 BP Diastolic BP Location Tested BP Systolic BP Type 83 146 Fetus Heart Rate Present Fetus Movement Comments Flowsheet Date 07/24/2021 Ney Score Blood Edema Fundus Height Fundus Units Glucose Ketones Leukocytes Nitrite Labor Signs Protein Cervic Dilation Cervic Effacement Cervic Station Type Weight in lbs Pre/Post Dialysis Refused Weight 273.291582407708 BP Diastolic BP Location Tested BP Systolic BP Type 76 110 Fetus Heart Rate Present Fetus Movement Comments Flowsheet Date 07/27/2021 Nye Score Blood Edema Fundus Height Fundus Units Glucose Ketones Leukocytes Nitrite Labor Signs Protein Cervic Dilation Cervic Effacement Cervic Station Type Weight in lbs Pre/Post Dialysis Refused BP Diastolic BP Location Tested BP Systolic BP Type Fetus Heart Rate Present Fetus Movement Comments Flowsheet Date 07/27/2021 Nye Score Blood Edema Fundus Height Fundus Units Glucose Ketones Leukocytes Nitrite Labor Signs Protein Cervic Dilation Cervic Effacement Cervic Station 35 Type Weight in lbs Pre/Post Dialysis Refused Weight 274.600180056632 BP Diastolic BP Location Tested BP Systolic BP Type 73 R arm 117 sitting Fetus Heart Rate Present A 134 Fetus Movement Comments complains of a sharp lower p elvic pain. Intermittent, good movement, no vaginal bleeding, no contractions. Blood sugars well controlled, normal blood pressure, reactive NST, to repeat platelets today. Flowsheet Date 07/31/2021 Nye Score Blood Edema Fundus Height Fundus Units Glucose Ketones Leukocytes Nitrite Labor Signs Protein Cervic Dilation Cervic Effacement Cervic Station Type Weight in lbs Pre/Post Dialysis Refused BP Diastolic BP Location Tested BP Systolic BP Type Fetus Heart Rate Present Fetus Movement Comments Flowsheet Date 07/31/2021 Nye Score Blood Edema Fundus Height Fundus Units Glucose Ketones Leukocytes Nitrite Labor Signs Protein Cervic Dilation Cervic Effacement Cervic Station 37 Type Weight in lbs Pre/Post Dialysis Refused Weight 273.616494910038 BP Diastolic BP Location Tested BP Systolic BP Type 83 R arm 136 sitting Fetus Heart Rate Present A 140 Fetus Movement Comments no complaints, to check plat elets today along with CBC, excellent blood sugar control, repeat ultrasound coming up Flowsheet Date 08/07/2021 Nye Score Blood Edema Fundus Height Fundus Units Glucose Ketones Leukocytes Nitrite Labor Signs Protein Cervic Dilation Cervic Effacement Cervic Station Type Weight in lbs Pre/Post Dialysis Refused BP Diastolic BP Location Tested BP Systolic BP Type Fetus Heart Rate Present Fetus Movement Comments Flowsheet Date 08/07/2021 Nye Score Blood Edema Fundus Height Fundus Units Glucose Ketones Leukocytes Nitrite Labor Signs Protein Cervic Dilation Cervic Effacement Cervic Station Type Weight in lbs Pre/Post Dialysis Refused BP Diastolic BP Location Tested BP Systolic BP Type Fetus Heart Rate Present Fetus Movement Comments Flowsheet Date 08/07/2021 Nye Score Blood Edema Fundus Height Fundus Units Glucose Ketones Leukocytes Nitrite Labor Signs Protein Cervic Dilation Cervic Effacement Cervic Station neg trace none trace 4cm 60% -2 Type Weight in lbs Pre/Post Dialysis Refused Weight 276.808537285243 BP Diastolic BP Location Tested BP Systolic BP Type 85 136 Fetus Heart Rate Present A 140 Fetus Movement A Yes Comments Doing well. GBS neg. Platele ts were wnl, but had ovalocytes and Kaley cells on smear. Iron studies and CMP today. Discussed ddx, most likely anemia, but possibility of renal or liver dz or cancer. Will repeat CBC with smear . Will start slow Fe today. Having some contractions. 4cm already. Labor precautions given. No longer breech! Sugars ok, but has missed quite a few. Encouraged strict compliance with testing and diet in these last few weeks. Flowsheet Date 08/10/2021 Nye Score Blood Edema Fundus Height Fundus Units Glucose Ketones Leukocytes Nitrite Labor Signs Protein Cervic Dilation Cervic Effacement Cervic Station Type Weight in lbs Pre/Post Dialysis Refused Weight 277.761812605504 BP Diastolic BP Location Tested BP Systolic BP Type 74 112 Fetus Heart Rate Present Fetus Movement Comments Flowsheet Date 08/21/2021 Nye Score Blood Edema Fundus Height Fundus Units Glucose Ketones Leukocytes Nitrite Labor Signs Protein Cervic Dilation Cervic Effacement Cervic Station Type Weight in lbs Pre/Post Dialysis Refused BP Diastolic BP Location Tested BP Systolic BP Type Fetus Heart Rate Present Fetus Movement Comments Flowsheet Date 08/21/2021 Nye Score Blood Edema Fundus Height Fundus Units Glucose Ketones Leukocytes Nitrite Labor Signs Protein Cervic Dilation Cervic Effacement Cervic Station neg none none trace 6cm 70% -2 Type Weight in lbs Pre/Post Dialysis Refused Weight 275.727793938898 BP Diastolic BP Location Tested BP Systolic BP Type 83 129 Fetus Heart Rate Present A 125 Fetus Movement A Yes Comments Had COVID last week. Feeling fine now. BS perfect. Cervix with advanced dilation. Discussed risks, encouraged IOL, will schedule for Friday. Flowsheet Date 09/03/2021 Nye Score Blood Edema Fundus Height Fundus Units Glucose Ketones Leukocytes Nitrite Labor Signs Protein Cervic Dilation Cervic Effacement Cervic Station Type Weight in lbs Pre/Post Dialysis Refused Weight 257.500134102750 BP Diastolic BP Location Tested BP Systolic BP Type 85 122 Fetus Heart Rate Present Fetus Movement Comments Menstrual History Last Menstrual Date Menses Monthly On Bcp Conception Prior Menses Frequency Hcg Plus Date Menarche Onset Age 0811/22/2020 Genetic Screening And Infection History Question Response Note Mental Retardation/Autism false Patient's Age Will Be 35 Years Or Older At Estim ated Date of Delivery false Thalassemia (Occitan, Romanian, Mediterranean, Or Background): MCV < 80 false Neural Tube Defect (Meningomyelocele, Spina Bifi da, Or Anencephaly) false Congenital Heart Defect false Down Syndrome false Anup-Sachs (eg, [place], [place], [place]) f alse Chris Disease false Sickle Cell Disease Or Trait () false Hemophilia Or Other Blood Disorders false Muscular Dystrophy false Cystic Fibrosis false Gilmer's Chorea false Intellectual Disability/Autism false If Yes, Was Person Tested For Fragile X? false Other Inherited Genetic Or Chromosomal Disorder false Maternal Metabolic Disorder (eg, Type 1 Diabetes , PKU) false Patient Or Baby's Father Had A Child With Defects Not Listed Above false Recurrent Loss, Or A Stillbirth false Medications (including Suppl ements, Vitamins, Herbs, OTC Drugs), Illicit/Recreational Drugs, Alcohol false If Yes, Agent(s) And Strength/Dosage false Any Other Genetic History false Live With Someone With TB Or Exposed To TB false Patient Or Partner Has History Of Genital Herpes false Rash Or Viral Illness Since Last Menstrual Perio d false History Of STD, Gonorrhea, Chlamydia, HPV, Syphi lis false Other Infection History false History of HIV false History of Hepatitis false Prior GBS-infected child false Hemoglobinopathy Or Carrier false Other Structural Defect false Recent Travel History Outside of Country false Delivery Information Delivery Date Delivery Type Labor Anesthesia Weeks Gestation Incision Type Labor Labor Length Hrs Delivered By Post Complications Tubal Sterilization Discharge Date Comments 2 Induce d [facility] 39.2 Low Transvers e false Vidhya Elliott MD Maternal obesity, Anemia, GDM, Thrombocy topenic disorder & Poikilocy tosis & failure to descend Discharge Information Feeding Method Contraceptive Method Maternal HG B and HCT Levels Ob Episode Information Episode Created Date Number of Fetuses Patient Bloodtype Patient rh Status Prepregnancy Weight lbs Domestic Partner Domestic Partner Phone Father Name Marketing Community Liaison Status 12/28/19 23 1 CLOSED Fetus Data First Name Last Name Admitted to NICU Weight (g) Sex Living Outcome Pediatric Complications Fetus ID Race Codes Race Delivery Type , Spontane ous [id number] Damien Calculation Initial Damien Date Initial Exam Date Initial Exam Provider Initial Ultrasound Date Last Menstrual Period Date Ultra Sound Weeks Gestation 0 Eighteen To Twenty Week Damien Update Ultra Sound Date Fundal Height At Umbil Quickening Date Ultra Sound Latest Weeks Gestation Final Damien Confirmed By Final Damien Confirmed Date Final Damien Date Ultra Sound Latest Days Gestation 0 0 Menstrual History Last Menstrual Date Menses Monthly On Bcp Conception Prior Menses Frequency Hcg Plus Date Menarche Onset Age Delivery Information Delivery Date Delivery Type Labor Anesthesia Weeks Gestation Incision Type Labor Labor Length Hrs Delivered By Post Complications Tubal Sterilization Discharge Date Comments 3 Discharge Information Feeding Method Contraceptive Method Maternal HG B and HCT Levels
[2025-02-12 09:15] LABS: Strep Group A RT-PCR NOT DETECTED (Negative)
[2025-02-12 09:26] LABS: Influenza A QL RT-PCR Negative (Negative); Influenza B QL RT-PCR Negative (Negative); RSV RNA, RT-PCR Negative (Negative); SARS-CoV-2 RNA PCR Negative (Negative)
[2025-02-12 10:01] VITALS: BP 125/81; PULSE 70; RESP 20; O2SAT 100
== END 2025-02-12 10:04 | disposition home or self-care (01) ==
PROVIDERS: Emergency Provider Emergency Medicine; PCP Family Medicine
DX: J06.9 Acute upper respiratory infection, unspecified (principal); F41.9 Anxiety disorder, unspecified; Z20.822 Contact with and (suspected) exposure to COVID-19
CPT/HCPCS: 71046; 87637; 87651; 93005; 99284; A9270